=== PATIENT | male | born 1960 | race Caucasian/White ===

== ENCOUNTER 2018-10-23 09:14 | Inpatient (IN) ==
[2018-10-23] MEDS ORDERED: PANTOprazole 40 MG TAB PO STA (09:44)
[2018-10-23] MEDS ORDERED: FAMOTIDINE 20MG IV PUSH 20 MG/5 ML SYR IV STA (09:44)
[2018-10-23] MEDS ORDERED: SODIUM CHLORIDE 0.9% 1000ML 1,000 ML IV SCH (09:45)
[2018-10-23] MEDS ORDERED: SODIUM CHLORIDE 0.9% 250 ML IV PRN (10:03)
[2018-10-23 10:06] LABS: Hematocrit (blood only) 17.7 % (42-52); Hemoglobin 6.2 g/dL (14.0-18.0); Mean Corpuscular Volume 87.2 fL (80-100); Mean Platelet Volume 8.1 fL (7.4-10.4); Platelet Count 432 K/uL (130-400); RDW Coefficient of Variation 15.1 % (11.5-14.5); RDW Standard Deviation 46.7 fL (36.4-46.3); Red Blood Count 2.03 M/uL (4.7-6.1); White Blood Count 19.14 K/uL (4.8-10.8)
[2018-10-23] MEDS ORDERED: PIPERACILLIN/TAZOBACTAM 4.5 GM/120 ML BAG IV ONE (10:11)
[2018-10-23] MEDS ORDERED: PIPERACILL/TAZOBAC CONSULT ACTIVE PRN ×2 (10:11→12:49)
--- NOTE | 2018-10-23 10:13 | XRay Report ---
XR chest 1V portable CLINICAL HISTORY: 58 years-old Male presenting with weakness. TECHNIQUE: Portable upright AP view of the chest was obtained. COMPARISON: 08/17/2018. FINDINGS: Cardiomediastinal silhouette normal. No focal opacity. No large effusion or pneumothorax. Osseous str uctures normal. Upper abdomen normal. IMPRESSION: 1. No acute cardiopulmonary disease. Electronically signed by: Memo Nina M.D. 10/23/2018 10:12 AM
[2018-10-23 10:14] LABS: Partial Thromboplastin Ratio 0.7; Partial Thromboplastin Time < 20.0 Seconds (21.0-31.0); Prothrombin Time 10.6 Seconds (9.0-12.0)
--- NOTE | 2018-10-23 10:16 | Emergency Department Note ---
Entered by Sparkle Heath acting as a scribe for Liu Shepard DO History of Present Illness General Chief complaint: Vomiting Stated complaint: VOMITING, NO ENERGY, COLD, WEAKNESS, NUMB HANDS Time Seen by Provider: 10/23/18 09:32 Source: patient and family History of Present Illness Provider complaint: dizziness Onset (ago): day(s) 3 Location: head Pain Consistency: + intermittent Maximum Pain Intensity: 10 Quality: + other (dizziness) Associated symptoms: + chest pain, + fever/chills, + nausea/vomiting and + other (black stool, loss of energy) The patient is a 58 year old male who presents to the Emergency Department with complaints of dizziness over the last 3 days. His son states that the patient has also been vomiting and has had hot and cold flashes. The patient states that he did pass out in the waiting room and states that he has also had mild chest pain. The patient reports that he is "unable to function" and has had a loss of energy. He also reports having black stool. The patient states that he has not seen his doctor for his symptoms. Per son, the patient had a prostate biopsy 1 month ago and did get an infection. His son states that the patient has had these symptoms intermittently since the biopsy. The patient reports a history of hypertension. The patient states that he has prostate cancer and that his prostate was removed in January. He states that he is not aware of the cancer spreading. The patient states that he has been taking Advil but no other pain medication. He denies hitting his head recently. The patient states that he drinks beer daily. Home Medications Home Medications Medication Instructions Recorded Confirmed Type irbesartan 300 mg PO QAM 07/19/18 10/23/18 History tamsulosin 0.4 mg PO DAILY 10/23/18 10/23/18 History Allergies Allergy/AdvReac Type Severity Reaction Status Date / Time No Known Allergies Verified 10/23/18 09:49 Past Med/Surg History Medical History Prostate cancer Anxiety no meds Hypertension Sleep apnea does not use CPAP as ordered Surgical History History of prostate biopsy History of tooth extraction under local Family History Father No problems noted. Mother , age 75 severe arthritis No problems noted. Brother , age 56 renal cancer No problems noted. Other No family history of adverse response to anesthesia Social History Preferred Language: Italian Communication Ability: Effective Visual Impairment: No Limitations Beliefs That Will Affect Care: None marital status: Current Living Situation: Spouse and Family Current Living Situation Comment: Lives with and daughter current occupation: asphalt contractor Feels Safe at Home: Yes Smoking Status: Former smoker Tobacco Type: cigarettes Age Started Using Tobacco: 17 Age Quit Using Tobacco: 19 packs per day: 0.5 Second Hand Exposure: No Hx Alcohol Use: Yes Alcohol type: beer Hx Substance Use: No caffeine: Yes (tea and coffee) during the past year weight has: remained stable Dental Care, Regularly: No Physical Activity Frequency: Daily Seatbelt Use: always Sunscreen Use: Yes Review of Systems See HPI for pertinent positives & negatives. and A total of 10 systems reviewed and were otherwise negative Physical Exam Vital Signs Vital Signs - 24 hr 10/23/18 09:29 10/23/18 09:50 10/23/18 10:30 Temperature 36.4 C L Temperature Source Oral Sepsis Recent Fever Within 48 Hours No Sepsis Action Taken by Nursing No Action Required Pulse Rate 102 H Pulse Rate [Apical] 79 Respiratory Rate 16 20 Respiratory Effort / Characteristics Non-Labored Spontaneous Respiratory Depth Normal Normal Blood Pressure 114/81 Blood Pressure [Right Arm] 107/68 106/63 Blood Pressure Mean 92 Blood Pressure Mean [Right Arm] 81 77 Pulse Oximetry 99 100 Oxygen Delivery Method Room Air GENERAL: Patient is awake, alert, and anxious appearing. EYES: The conjunctivae are clear. The pupils are round and reactive. EARS, NOSE, MOUTH AND THROAT: The nose is without any evidence of any deformity. Mucous membranes are dry.Tongue is midline NECK: The neck is nontender and supple. RESPIRATORY: Normal respiratory effort is noted. There is no evidence of wheezing rhonchi or rales to auscultation. CARDIOVASCULAR: Tachycardic rate and regular rhythm noted. There no murmurs rubs or gallops normal S1 normal S2 GASTROINTESTINAL: The abdomen is soft. Bowel sounds are present in all quadrants. Abdomen is nontender. MUSCULOSKELETAL/EXTREMITIES: There is no evidence of gross deformity. Full range of motion is noted in the hips and shoulders. RECTAL: Black stool which was strongly heme positive. SKIN: Skin was mottled and pale. Pulses were symmetric in both feet. No pedal edema. NEUROLOGIC: Patient is awake alert and oriented x3. Strength is symmetric. Patellar reflexes are 2+ bilaterally. Course 0935: The patient was evaluated in room B9. A history and physical were performed. 0957: The patient was consented for blood. 1012: I discussed the patient's case with Renard Hutchinson PA-C, admitting to Dr. Boland, who will evaluate the patient for further management. 1025: I updated the patient who verbalized agreement and understanding of the treatmen plan. Consultations Consultation #1: Renard Gerbertany Time: 10:12 Administered Medications Pantoprazole Sodium 40 mg/ (Syringe) 10 mls @ 5 mls/min IV BID@0900,2100 [facility] Stop: 10/24/18 21:01 Last Admin: 10/23/18 13:18 Dose: 5 mls/min Documented by: [id number] Piperacillin Sod/Tazobactam (Sod 3.375 gm/ Dextrose) 115 mls @ 28.75 mls/hr IV Q8H JOSIAS; Protocol Stop: 11/02/18 15:59 Last Admin: 10/23/18 16:47 Dose: 28.8 mls/hr Documented by: [id number] Insulin Aspart (Novolog Flexpen) 0 units SC ACHS JOSIAS Stop: 11/22/18 12:59 Last Admin: 10/23/18 16:41 Dose: Not Given Documented by: [id number] Cosigned by: [id number] Admin: 10/23/18 14:15 Dose: Not Given Documented by: [id number] Cosigned by: [id number] Ioversol (Optiray 320 100ml) 93 ml IV ONCE PRN PRN Reason: Interaction Checking Stop: 10/27/18 11:27 Last Admin: 10/23/18 11:29 Dose: 93 ml Documented by: [id number] Discontinued Medications Sodium Chloride (Nss 1000ml) 1,000 mls @ 999 mls/hr IV .Q1H1M JOSIAS Stop: 10/23/18 10:45 Last Infusion: 10/23/18 12:26 Dose: 0 mls/hr Documented by: [id number] Admin: 10/23/18 09:56 Dose: 999 mls/hr Documented by: [id number] Famotidine (Pepcid 20mg Iv Push) 20 mg in 5 mls @ 2.5 mls/min IV NOW STA Stop: 10/23/18 09:45 Last Admin: 10/23/18 09:56 Dose: 2.5 mls/min Documented by: [id number] Piperacillin Sod/Tazobactam Sod (Zosyn) 4.5 gm in 120 mls @ 240 mls/hr IV NOW ONE Stop: 10/23/18 10:40 Last Infusion: 10/23/18 12:27 Dose: 0 mls/hr Documented by: [id number] Admin: 10/23/18 11:10 Dose: 240 mls/hr Documented by: [id number] Pantoprazole Sodium (Protonix) 40 mg PO NOW STA Stop: 10/23/18 09:45 Last Admin: 10/23/18 10:11 Dose: 40 mg Documented by: [id number] Medical Decision Making Differential Diagnosis Differential diagnosis: Etiologies such as esophagitis, variceal bleed, Boerhaaves, Occidental-Duff tear, gastritis, peptic ulcer disease, AVM, inflammatory bowel disease, ischemia, diverticulosis, colitis, malignancy, coagulopathy, thrombocytopenia, fissure, hemorrhoid, epistaxis , as well as others were entertained.. Medical Records Attestation: I reviewed the patient's medical records. Home Medications Current Medication List: was personally reviewed by me Laboratory Data Attestation: I reviewed the patient's lab results. Result diagrams: 10/23/18 09:46 10/23/18 09:46 Lab Results 10/23/18 10/23/18 10/23/18 Range/Units 09:44 09:46 09:46 WBC (4.8-10.8) K/uL RBC (4.7-6.1) M/uL Hgb (14.0-18.0) g/dL POC Hgb (14.0-18.0) g/dl Hct (42-52) % POC Hct (42-52) % MCV (80-100) fL MCH (25-34) pg MCHC (32-36) g/dL RDW Std Deviation (36.4-46.3) fL RDW Coeff of [place] (11.5-14.5) % Plt Count (130-400) K/uL MPV (7.4-10.4) fL Immature Gran % (Auto) % Neut % (Auto) % Lymph % (Auto) % [place] % (Auto) % Eos % (Auto) % Baso % (Auto) % Immature Gran # (Auto) (0.00-0.02) K/uL Neut # (Auto) (1.4-6.5) K/uL Lymph # (Auto) (1.2-3.4) K/uL [place] # (Auto) (0.11-0.59) K/uL Eos # (Auto) (0-0.5) K/uL Baso # (Auto) (0-0.2) K/uL RBC Morphology ESR 5 (0-14) mm/hr PT 10.6 (9.0-12.0) Seconds INR 1.0 (0.9-1.1) APTT < 20.0 L (21.0-31.0) Seconds PTT Ratio 0.7 POC Sodium (135-144) mEq/L Sodium (136-145) mmol/L POC Potassium (3.3-5.0) mEq/L Potassium (3.5-5.1) mmol/L POC Chloride (101-112) mEq/L Chloride (98-107) mmol/L Carbon Dioxide (21-32) mmol/L POC Total CO2 (24-31) mEq/l Anion Gap (3-11) POC Anion Gap (16-25) mmol/L POC BUN (7-18) mg/dl BUN (7-18) mg/dl Creatinine (0.6-1.4) mg/dl POC Creatinine (0.6-1.3) mg/dl Est Cr Clr Drug Dosing Est GFR ( Amer) Est GFR (Non-Af Amer) BUN/Creatinine Ratio (10-20) Glucose (70-99) mg/dl POC Glucose (other) (70-99) mg/dl Calcium (8.5-10.1) mg/dl POC Ioniz Calcium Mile (1.12-1.32) mmol/l Magnesium (1.8-2.4) mg/dl Total Bilirubin (0.2-1) mg/dl AST (15-37) U/L ALT (12-78) U/L Alkaline Phosphatase (45-117) U/L Troponin I (0-0.045) ng/ml C-Reactive Protein (0-0.29) mg/dl Total Protein (6.4-8.2) gm/dl Albumin (3.4-5.0) gm/dl Globulin (2.5-4.0) gm/dl Albumin/Globulin Ratio (0.9-2) TSH (0.300-4.500) uIu/ml Hepatitis C Ab Screen (Neg) Blood Type A Positive Blood Type Recheck Antibody Screen NEGATIVE Crossmatch See Detail 10/23/18 10/23/18 10/23/18 Range/Units 09:46 09:46 09:52 WBC 19.14 H (4.8-10.8) K/uL RBC 2.03 L (4.7-6.1) M/uL Hgb 6.2 L* (14.0-18.0) g/dL POC Hgb 5.4 L* (14.0-18.0) g/dl Hct 17.7 L* (42-52) % POC Hct 16 L* (42-52) % MCV 87.2 (80-100) fL MCH 30.5 (25-34) pg MCHC 35.0 (32-36) g/dL RDW Std Deviation 46.7 H (36.4-46.3) fL RDW Coeff of [place] 15.1 H (11.5-14.5) % Plt Count 432 H (130-400) K/uL MPV 8.1 (7.4-10.4) fL Immature Gran % (Auto) 1.4 % Neut % (Auto) 85.9 % Lymph % (Auto) 9.9 % [place] % (Auto) 2.5 % Eos % (Auto) 0.2 % Baso % (Auto) 0.1 % Immature Gran # (Auto) 0.27 H (0.00-0.02) K/uL Neut # (Auto) 16.45 H (1.4-6.5) K/uL Lymph # (Auto) 1.89 (1.2-3.4) K/uL [place] # (Auto) 0.47 (0.11-0.59) K/uL Eos # (Auto) 0.04 (0-0.5) K/uL Baso # (Auto) 0.02 (0-0.2) K/uL RBC Morphology Unremarkable ESR (0-14) mm/hr PT (9.0-12.0) Seconds INR (0.9-1.1) APTT (21.0-31.0) Seconds PTT Ratio POC Sodium 134 L (135-144) mEq/L Sodium 135 L (136-145) mmol/L POC Potassium 4.0 (3.3-5.0) mEq/L Potassium 4.0 (3.5-5.1) mmol/L POC Chloride 101 (101-112) mEq/L Chloride 102 (98-107) mmol/L Carbon Dioxide 23 (21-32) mmol/L POC Total CO2 19 L (24-31) mEq/l Anion Gap 10.0 (3-11) POC Anion Gap 19.0 (16-25) mmol/L POC BUN 42 H (7-18) mg/dl BUN 43 H (7-18) mg/dl Creatinine 0.92 (0.6-1.4) mg/dl POC Creatinine 0.8 (0.6-1.3) mg/dl Est Cr Clr Drug Dosing Not Reportable Est GFR ( Amer) 105.9 Est GFR (Non-Af Amer) 91.4 BUN/Creatinine Ratio 47.4 H (10-20) Glucose 202 H (70-99) mg/dl POC Glucose (other) 203 H (70-99) mg/dl Calcium 7.8 L (8.5-10.1) mg/dl POC Ioniz Calcium Mile 1.09 L (1.12-1.32) mmol/l Magnesium 2.2 (1.8-2.4) mg/dl Total Bilirubin 0.2 (0.2-1) mg/dl AST 8 L (15-37) U/L ALT 23 (12-78) U/L Alkaline Phosphatase 50 (45-117) U/L Troponin I < 0.015 (0-0.045) ng/ml C-Reactive Protein < 0.29 (0-0.29) mg/dl Total Protein 5.6 L (6.4-8.2) gm/dl Albumin 2.8 L (3.4-5.0) gm/dl Globulin 2.8 (2.5-4.0) gm/dl Albumin/Globulin Ratio 1.0 (0.9-2) TSH 2.870 (0.300-4.500) uIu/ml Hepatitis C Ab Screen (Neg) Blood Type Blood Type Recheck Antibody Screen Crossmatch 10/23/18 10/23/18 Range/Units 09:52 10:22 WBC (4.8-10.8) K/uL RBC (4.7-6.1) M/uL Hgb (14.0-18.0) g/dL POC Hgb (14.0-18.0) g/dl Hct (42-52) % POC Hct (42-52) % MCV (80-100) fL MCH (25-34) pg MCHC (32-36) g/dL RDW Std Deviation (36.4-46.3) fL RDW Coeff of [place] (11.5-14.5) % Plt Count (130-400) K/uL MPV (7.4-10.4) fL Immature Gran % (Auto) % Neut % (Auto) % Lymph % (Auto) % [place] % (Auto) % Eos % (Auto) % Baso % (Auto) % Immature Gran # (Auto) (0.00-0.02) K/uL Neut # (Auto) (1.4-6.5) K/uL Lymph # (Auto) (1.2-3.4) K/uL [place] # (Auto) (0.11-0.59) K/uL Eos # (Auto) (0-0.5) K/uL Baso # (Auto) (0-0.2) K/uL RBC Morphology ESR (0-14) mm/hr PT (9.0-12.0) Seconds INR (0.9-1.1) APTT (21.0-31.0) Seconds PTT Ratio POC Sodium (135-144) mEq/L Sodium (136-145) mmol/L POC Potassium (3.3-5.0) mEq/L Potassium (3.5-5.1) mmol/L POC Chloride (101-112) mEq/L Chloride (98-107) mmol/L Carbon Dioxide (21-32) mmol/L POC Total CO2 (24-31) mEq/l Anion Gap (3-11) POC Anion Gap (16-25) mmol/L POC BUN (7-18) mg/dl BUN (7-18) mg/dl Creatinine (0.6-1.4) mg/dl POC Creatinine (0.6-1.3) mg/dl Est Cr Clr Drug Dosing Est GFR ( Amer) Est GFR (Non-Af Amer) BUN/Creatinine Ratio (10-20) Glucose (70-99) mg/dl POC Glucose (other) (70-99) mg/dl Calcium (8.5-10.1) mg/dl POC Ioniz Calcium Mile (1.12-1.32) mmol/l Magnesium (1.8-2.4) mg/dl Total Bilirubin (0.2-1) mg/dl AST (15-37) U/L ALT (12-78) U/L Alkaline Phosphatase (45-117) U/L Troponin I (0-0.045) ng/ml C-Reactive Protein (0-0.29) mg/dl Total Protein (6.4-8.2) gm/dl Albumin (3.4-5.0) gm/dl Globulin (2.5-4.0) gm/dl Albumin/Globulin Ratio (0.9-2) TSH (0.300-4.500) uIu/ml Hepatitis C Ab Screen Neg (Neg) Blood Type Blood Type Recheck A Positive Antibody Screen Crossmatch Imaging Data Radiologist's Impression: Radiology results as stated below per my review and the radiologist's interpretation: XR chest 1V portable CLINICAL HISTORY: 58 years-old Male presenting with weakness. TECHNIQUE: Portable upright AP view of the chest was obtained. COMPARISON: 08/17/2018. FINDINGS: Cardiomediastinal silhouette normal. No focal opacity. No large effusion or pneumothorax. Osseous structures normal. Upper abdomen normal. IMPRESSION: 1. No acute cardiopulmonary disease. Electronically signed by: Memo Nina M.D. 10/23/2018 10:[address] head/brain wo con CT DOSE: 537.48 mGy.cm HISTORY: Mental status change synope TECHNIQUE: Multiaxial CT images of the head were performed without the use of intravenous contrast. A dose lowering technique was utilized adhering to the principles of ALARA. Comparison: None. Findings: The paranasal sinuses and mastoid air cells are clear. The calvarium and skull base are intact. The ventricles and sulci are within normal limits. There is no mass, hematoma, midline shift, or acute infarct. Impression: No acute intracranial abnormality. The above report was generated using voice recognition software. It may contain grammatical, syntax or spelling errors. Electronically signed by: Bartolo Pelaez M.D. 10/23/2018 11:[address] abd pelvis IV con only CLINICAL HISTORY: 58 years-old Male presenting with vomiting and GIB, history of prostate cancer. TECHNIQUE: Multidetector CT of the abdomen and pelvis was performed after the administration of intravenous contrast. IV contrast: 93 mL of Optiray 320. One or more dose lowering techniques were used consistent with the principles of ALARA (as low as reasonably achievable), including automatic exposure control, mA or kV adjustment to individual patient size, and/or use of iterative reconstruction. COMPARISON: 09/25/2018. CT DOSE (mGy.cm): The estimated cumulative dose is 346.79 mGy.cm. FINDINGS: Technical Marketing Consultant topogram: Unremarkable. Lung bases: Normal heart size. Coronary artery calcification. No pericardial or pleural effusion. Minimal dependent changes likely atelectasis. Liver: Normal morphology. No liver lesion. Patent hepatic vasculature. Biliary: No intrahepatic or extrahepatic biliary ductal dilatation. Normal gallbladder. Pancreas: Normal. Spleen: Normal. Adrenal glands: Normal. Kidneys and ureters: Patchy hypoenhancement in the right kidney this is a change from prior left kidney normal. No nephrolithiasis or hydronephrosis. Ureters nondistended. Bladder: Circumferential bladder wall thickening. Pelvic organs: Prostate and seminal vesicles normal. Bowel: Diverticulosis of the sigmoid and distal descending colon without wall thickening or pericolonic inflammatory change. The appendix is normal. No bowel obstruction. Moderate to large sliding-type hiatal hernia. Peritoneal cavity: No free fluid or intraperitoneal gas. Lymph nodes: No enlarged lymph nodes in the abdomen or pelvis. Vasculature: Atherosclerosis of the normal caliber abdominal aorta. IVC patent. 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 Abdominal wall: Small fat-containing inguinal hernias. Musculoskeletal: Degenerative changes of the spine. IMPRESSION: 1. No CT evidence of gastrointestinal hemorrhage. Extensive diverticulosis of the sigmoid and distal descending colon would be the most likely culprit for lower GI bleed. 2. Patchy enhancements of the right kidney is new from prior and raises concern for underlying pyelonephritis or less likely small infarcts. Correlate with urinalysis. Attention on follow-up. 3. Circumferential bladder wall thickening presumably represents chronic bladder outlet obstruction though there is no significant prostatomegaly. Correlate with urinalysis to suggest cystitis. 4. 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 Consider nonurgent spectral Doppler ultrasound examination of the mesenteric vessels for a better functional assessment. Electronically signed by: Memo Nina M.D. 10/23/2018 11:44 AM ECG Data Attestation: I personally reviewed and interpreted this ECG as follows: Indication: vomiting Rate (beats per minute): 83 Rhythm: normal sinus Findings: no PAC, no PVC, no ST depression, no ST elevation, no acute ischemic change and no ectopy Blood Pressure Blood Pressure Findings: Normal blood pressure MDM Narrative The patient is a 58-year-old male who presented to the emergency department for an evaluation of dizziness and generalized weakness. The patient's noticed over the last 2 weeks that he is been having dizziness and weakness. He also describes some degree of vertigo but I think his symptoms are mostly near syncopal. He actually had a syncopal episode in our waiting room while he was waiting to be seen. The patient was mottled and pale appearing. He was found to have dark stool which was strongly positive. His hemoglobin was found to be low. He does have a history of recent NSAID use as well as alcohol use. Likely the patient is suffering from an upper GI bleed. A type and screen was sent and blood products were ordered. I discussed the patient's laboratory and radiographic studies with him. I also discussed his case with the on-call [facility] hospitalist group. They have agreed to evaluate the patient in the emergency department for further management and disposition. Blood products were ordered by myself. I did consent the patient for blood. The patient was also treated with IV fluid. He was reevaluated multiple times. Impression & Plan Upper GI bleed, Anemia, Syncope, Vomiting, Pyelonephritis Critical Care Time Critical Care Time: Yes Total Critical Care Time: 60 I have personally spent 60 minutes of critical care time in the direct management of this patient. This includes bedside care, interpretation of diagnostic studies, and testing, discussion with consultants, patient, and family members, and other required patient management activities. This 60 minutes is in excess of all separately billable procedures. Discharge Plan Visit Data *Final* Discharge Date/Time: 10/23/18 12:24 Chief Complaint: Vomiting Stated Complaint: VOMITING, NO ENERGY, COLD, WEAKNESS, NUMB HANDS ED Provider: Liu Shepard Discharge Problem: Upper GI bleed, Anemia, Syncope, Vomiting, Pyelonephritis Patient Disposition: Admitted As Inpatient Discharge Instructions Interventions: ED Discharge Assessment Last Done: 10/23/18 12:24 Discharge Problem: Anemia Qualifiers: Anemia type: unspecified type Qualified Code(s): D64.9 - Anemia, unspecified Syncope Qualifiers: Syncope type: unspecified Qualified Code(s): R55 - Syncope and collapse Vomiting Qualifiers: Vomiting type: unspecified Vomiting Intractability: unspecified Nausea presence: unspecified Qualified Code(s): R11.10 - Vomiting, unspecified The scribe's documentation has been prepared under my direction and personally reviewed by me in its entirety. I confirm that the note above accurately reflects all work, treatment, procedures, and medical decision making performed by me.
[2018-10-23 10:18] LABS: Alanine Aminotransferase 23 U/L (12-78); Albumin Level 2.8 gm/dl (3.4-5.0); Aspartate Aminotransferase 8 U/L (15-37); BUN Creatinine Ratio 47.4 (10-20); Blood Urea Nitrogen 43 mg/dl (7-18); Calcium 7.8 mg/dl (8.5-10.1); Carbon Dioxide 23 mmol/L (21-32); Chloride 102 mmol/L (98-107); Est GFR (African American) 105.9; Est GFR (Non-African American) 91.4; Glucose 202 mg/dl (70-99); Magnesium 2.2 mg/dl (1.8-2.4); Sodium 135 mmol/L (136-145)
[2018-10-23 10:26] LABS: Basophils # (auto) 0.02 K/uL (0-0.2); Basophils % (auto) 0.1 %; Eosinophils # (auto) 0.04 K/uL (0-0.5); Eosinophils % (auto) 0.2 %; Immature Granulocytes # (auto) 0.27 K/uL (0.00-0.02); Immature Granulocytes % (auto) 1.4 %; Lymphocytes # (auto) 1.89 K/uL (1.2-3.4); Lymphocytes % (auto) 9.9 %; Monocytes # (auto) 0.47 K/uL (0.11-0.59); Monocytes % (auto) 2.5 %; Neutrophils # (auto) 16.45 K/uL (1.4-6.5); Neutrophils % (auto) 85.9 %; RBC Morphology Unremarkable
[2018-10-23 10:29] LABS: Alkaline Phosphatase 50 U/L (45-117); Bilirubin,Total 0.2 mg/dl (0.2-1); C Reactive Protein < 0.29 mg/dl (0-0.29); Globulin 2.8 gm/dl (2.5-4.0); Total Protein 5.6 gm/dl (6.4-8.2); Troponin I < 0.015 ng/ml (0-0.045)
[2018-10-23] MEDS ORDERED: IOVERSOL 100ml IV PRN (11:28)
--- NOTE | 2018-10-23 11:36 | CT Scan Report ---
CT head/brain wo con CT DOSE: 537.48 mGy.cm HISTORY: Mental status change synope TECHNIQUE: Multiaxial CT images of the head were performed without the use of intravenous contrast. A dose lowering technique was utilized adhering to the principles of ALARA. Comparison: None. Findings: The paranasal sinuses and mastoid air cells are clear. The calvarium and skull base are int act. The ventricles and sulci are within normal limits. There is no mass, hematoma, midline shift, or acute infarct. Impression: No acute intracranial abnormality. The above report was generated using voice recognition software. It may contain grammatical, syntax or spelling errors. Electronically signed by: Bartolo Pelaez M.D. 10/23/2018 11:34 AM
--- NOTE | 2018-10-23 11:38 | History & Physical Report ---
Date of Service October 23, 2018 Assessment & Plan (1) Upper GI bleed: Patient with suspected UGIB. Presenting with 3-4 days of melenic stools, nausea and coffee ground emesis followed by hematemesis today. Symptomatic anemia. Hg=6.2, Hct=17.7. Patient with history of daily EtOH use as well as intermittent use of NSAIDS. Presently hemodynamically stable and asymptomatic. -Admit to PCU -Monitor CBC q 8 hours. Transfuse for active bleeding, symptomatic anemia or Hg < 7 -NPO -GI consultation - appreciate assistance with this case -Maintain 2 large bore PIVs -Protonix 40mg IV BID - approved by pharmacy at time of admission Present on Admission?: Yes (2) Anemia: Normochromic/normocytic anemia, Hg=6.2, Hct=17.7 down from prior values of 14.4 and 40 in August 2018. Most likely secondary to acute blood loss anemia in setting of UGIB. Patient symptomatic with near syncope/dizziness/fatigue/weakness and CASTELLANO. -To receive 2u PRBCs in ER -Monitor CBC q 8 hours, transfuse for active bleed, symptoms or inappropriate response in Hg -GI consultation as above Present on Admission?: Yes (3) Leukocytosis: Patient with neutrophil predominant leukocytosis with bands, WBC=19.14. He reports subjective fevers and chills since his prostate biopsy as well as recent dysuria and urinary frequency. Suspect leukocytosis is mildly reactive in setting of acute bleed as well as possible infection, UTI vs prostatitis -Awaiting UA with culture -Will empirically treat with Zosyn, deescalation pending culture results -Consider Urology consultation as patient is known to them Present on Admission?: Yes (4) Hyperglycemia: Blood sugar = 202 at present. Patient with elevated values in the past. May represent undiagnosed DM with BS > 200 and urinary frequency. -Check A1C with AM labs -ISS for now with goal blood sugar of 80 - 140 Present on Admission?: Yes (5) Hypertension: Blood pressure stable at present -Hold Irbesartan in setting of acute bleed -Continue to monitor Present on Admission?: Yes (6) LOKESH on CPAP: Patient is not compliant with CPAP. -Encourage use at home -CPAP qHS Present on Admission?: Yes (7) Prostate cancer: Patient with newly diagnosed prostate cancer, moderately differentiated Malika 3+4, PSA=11.3, cT 1c. Bone scan performed on 09/25/18 with no evidence of metastatic disease. He follows with Urology. Has opted for radical prostatectomy to be performed in the fall. F/E/N - Transfusion as above. Electrolytes WNL. NPO for now in setting of UGIB Ppx - SCDs and TEDs to bilateral LEs Code -Full Dispo - Admit to PCU Present on Admission?: Yes History of Present Illness Chief Complaint: syncope/UGIB Primary Care Provider: Carlos Muñiz MD Mr. Jerome Salcedo is a pleasant 58yo C male with history of Prostate CA on active surveillance, HTN Anxiety presenting with suspected UGIB. Patient reports black, tarry stools for the last 3-4 days. This AM patient developed nausea with 2 episodes of coffee ground emesis. Patient had a syncopal episode while waiting in the ER and had an episode of hematemesis. Stools found to be strongly heme + by ER as well as normochromic/normocytic anemia, Hg=6.2 down from prior value of 14.4 in August. Additionally he has been complaining of approximately 1 month of intermittent dizziness as well as generalized weakness and fatigue. He reports lightheadedness and near syncope with positional changes and CASTELLANO. These symptoms have been acutely worse over the last 2-3 days. He also had an episode of mild chest discomfort after vomiting which quickly resolved. Patient drinks EtOH, appx 2-3 beers daily. He uses Ibuprofen and Excedrin a few times per week. He has no known history of liver disease. No prior history of GIB and is not on anticoagulation. He also reports intermittent fevers, chills and body aches since his prostate biopsy in late August as well as increased urinary frequency. ER Course: Pepcid 20mg IV. Protonix 40mg PO. NSS 1L. Zosyn 4.5gm Allergies Allergy/AdvReac Type Severity Reaction Status Date / Time No Known Allergies Verified 10/23/18 09:49 Home Medications Home Medications Medication Instructions Recorded Confirmed Type irbesartan 300 mg PO QAM 07/19/18 10/23/18 History tamsulosin 0.4 mg PO DAILY 10/23/18 10/23/18 History Past Med/Surg History Medical History Prostate cancer Anxiety no meds Hypertension Sleep apnea does not use CPAP as ordered Surgical History History of prostate biopsy History of tooth extraction under local Family History Father No problems noted. Mother , age 75 severe arthritis No problems noted. Brother , age 56 renal cancer No problems noted. Other No family history of adverse response to anesthesia Social History Preferred Language: Eritrean Communication Ability: Effective Visual Impairment: No Limitations Beliefs That Will Affect Care: None marital status: Current Living Situation: Spouse and Family Current Living Situation Comment: Lives with and daughter current occupation: asphalt contractor Feels Safe at Home: Yes Smoking Status: Never smoker Tobacco Type: cigarettes Age Started Using Tobacco: 17 Age Quit Using Tobacco: 19 packs per day: 0.5 Second Hand Exposure: Yes ( SMOKES) Hx Alcohol Use: Yes Alcohol type: beer Hx Substance Use: No caffeine: Yes (tea and coffee) during the past year weight has: remained stable Dental Care, Regularly: No Physical Activity Frequency: Daily Seatbelt Use: always Sunscreen Use: Yes Review of Systems Review of Systems: All systems reviewed & are unremarkable except as noted in HPI & below Patient presently without nausea, CP, abdominal pain or SOB Physical Exam Physical Exam: General: patient resting comfortably, NAD, ill in appearance, AA&O x 4 Skin: +pallor of skin, conjunctiva and oral mucosa, warm, dry, intact, no rashes or lesions HEENT: NC/AT, PERRL, EOMI, anicteric sclera, conjunctiva pale and without injection, external ear normal to inspection and nontender, nares patent, moist mucus membranes, dentition intact, no oropharyngeal lesions, neck supple, trachea midline, no LAD, no thyromegaly, no JVD Heart: +S1/S2, regular, no m/r/g Lungs: equal air entry bilaterally, no rales/rhonchi/wheezes Abd: +BS, soft, NT/ND, no masses/organomegaly/ascites Ext: warm, 2+ pulses in UE/LE bilaterally, no clubbing/cyanosis or edema Neuro: nonfocal, patient AA&O x 4, speech intact, no facial droop, moving all extremities on command with equal strength 5/5 Results & Data Vital Signs (Past 12 Hours) Vital Signs Temp Pulse Resp BP Pulse Ox 10/23/18 09:29 36.4 C L 102 H 16 114/81 99 Laboratory Results Lab Results 10/23/18 10/23/18 10/23/18 Range/Units 09:44 09:46 09:46 WBC (4.8-10.8) K/uL RBC (4.7-6.1) M/uL Hgb (14.0-18.0) g/dL Hct (42-52) % MCV (80-100) fL MCH (25-34) pg MCHC (32-36) g/dL RDW Std Deviation (36.4-46.3) fL RDW Coeff of [place] (11.5-14.5) % Plt Count (130-400) K/uL MPV (7.4-10.4) fL Immature Gran % (Auto) % Neut % (Auto) % Lymph % (Auto) % [place] % (Auto) % Eos % (Auto) % Baso % (Auto) % Immature Gran # (Auto) (0.00-0.02) K/uL Neut # (Auto) (1.4-6.5) K/uL Lymph # (Auto) (1.2-3.4) K/uL [place] # (Auto) (0.11-0.59) K/uL Eos # (Auto) (0-0.5) K/uL Baso # (Auto) (0-0.2) K/uL RBC Morphology ESR 5 (0-14) mm/hr PT 10.6 (9.0-12.0) Seconds INR 1.0 (0.9-1.1) APTT < 20.0 L (21.0-31.0) Seconds PTT Ratio 0.7 Sodium (136-145) mmol/L Potassium (3.5-5.1) mmol/L Chloride (98-107) mmol/L Carbon Dioxide (21-32) mmol/L Anion Gap (3-11) BUN (7-18) mg/dl Creatinine (0.6-1.4) mg/dl Est Cr Clr Drug Dosing Est GFR ( Amer) Est GFR (Non-Af Amer) BUN/Creatinine Ratio (10-20) Glucose (70-99) mg/dl Calcium (8.5-10.1) mg/dl Magnesium (1.8-2.4) mg/dl Total Bilirubin (0.2-1) mg/dl AST (15-37) U/L ALT (12-78) U/L Alkaline Phosphatase (45-117) U/L Troponin I (0-0.045) ng/ml C-Reactive Protein (0-0.29) mg/dl Total Protein (6.4-8.2) gm/dl Albumin (3.4-5.0) gm/dl Globulin (2.5-4.0) gm/dl Albumin/Globulin Ratio (0.9-2) TSH (0.300-4.500) uIu/ml Blood Type A Positive Blood Type Recheck Antibody Screen NEGATIVE Crossmatch See Detail 10/23/18 10/23/18 10/23/18 Range/Units 09:46 09:46 10:22 WBC 19.14 H (4.8-10.8) K/uL RBC 2.03 L (4.7-6.1) M/uL Hgb 6.2 L* (14.0-18.0) g/dL Hct 17.7 L* (42-52) % MCV 87.2 (80-100) fL MCH 30.5 (25-34) pg MCHC 35.0 (32-36) g/dL RDW Std Deviation 46.7 H (36.4-46.3) fL RDW Coeff of [place] 15.1 H (11.5-14.5) % Plt Count 432 H (130-400) K/uL MPV 8.1 (7.4-10.4) fL Immature Gran % (Auto) 1.4 % Neut % (Auto) 85.9 % Lymph % (Auto) 9.9 % [place] % (Auto) 2.5 % Eos % (Auto) 0.2 % Baso % (Auto) 0.1 % Immature Gran # (Auto) 0.27 H (0.00-0.02) K/uL Neut # (Auto) 16.45 H (1.4-6.5) K/uL Lymph # (Auto) 1.89 (1.2-3.4) K/uL [place] # (Auto) 0.47 (0.11-0.59) K/uL Eos # (Auto) 0.04 (0-0.5) K/uL Baso # (Auto) 0.02 (0-0.2) K/uL RBC Morphology Unremarkable ESR (0-14) mm/hr PT (9.0-12.0) Seconds INR (0.9-1.1) APTT (21.0-31.0) Seconds PTT Ratio Sodium 135 L (136-145) mmol/L Potassium 4.0 (3.5-5.1) mmol/L Chloride 102 (98-107) mmol/L Carbon Dioxide 23 (21-32) mmol/L Anion Gap 10.0 (3-11) BUN 43 H (7-18) mg/dl Creatinine 0.92 (0.6-1.4) mg/dl Est Cr Clr Drug Dosing Not Reportable Est GFR ( Amer) 105.9 Est GFR (Non-Af Amer) 91.4 BUN/Creatinine Ratio 47.4 H (10-20) Glucose 202 H (70-99) mg/dl Calcium 7.8 L (8.5-10.1) mg/dl Magnesium 2.2 (1.8-2.4) mg/dl Total Bilirubin 0.2 (0.2-1) mg/dl AST 8 L (15-37) U/L ALT 23 (12-78) U/L Alkaline Phosphatase 50 (45-117) U/L Troponin I < 0.015 (0-0.045) ng/ml C-Reactive Protein < 0.29 (0-0.29) mg/dl Total Protein 5.6 L (6.4-8.2) gm/dl Albumin 2.8 L (3.4-5.0) gm/dl Globulin 2.8 (2.5-4.0) gm/dl Albumin/Globulin Ratio 1.0 (0.9-2) TSH 2.870 (0.300-4.500) uIu/ml Blood Type Blood Type Recheck A Positive Antibody Screen Crossmatch Diagnostic Findings XR chest 1V portable CLINICAL HISTORY: 58 years-old Male presenting with weakness. TECHNIQUE: Portable upright AP view of the chest was obtained. COMPARISON: 08/17/2018. FINDINGS: Cardiomediastinal silhouette normal. No focal opacity. No large effusion or pneumothorax. Osseous structures normal. Upper abdomen normal. IMPRESSION: 1. No acute cardiopulmonary disease. Electronically signed by: Memo Nina M.D. 10/23/2018 10:12 AM Dictated: 10/23/18 1007 Transcribed: 10/23/18 1007 ECG Additional Comments: The study shows NSR at 83bpm, normal axis, CM=642, QRS=74, WQd=678, no evidence of acute ischemia Code Status & VTE Plan Code Status FULL VTE Prophylaxis Plan VTE Prophylaxis will be ordered: Yes PG Care Time/CCT Total # of Minutes Spent Total Time Spent with Patient: Total time spent is greater than 50% in coordination of care (as documented) at patient's floor/unit and/or counseling patient: (1) Anemia Anemia type: unspecified type Qualified Code(s): D64.9 - Anemia, unspecified (2) Leukocytosis Leukocytosis type: unspecified Qualified Code(s): D72.829 - Elevated white blood cell count, unspecified (3) Hypertension Hypertension type: essential hypertension Qualified Code(s): I10 - Essential (primary) hypertension
--- NOTE | 2018-10-23 11:45 | CT Scan Report ---
CT abd pelvis IV con only CLINICAL HISTORY: 58 years-old Male presenting with vomiting and GIB, history of prostate cancer. TECHNIQUE: Multidetector CT of the abdomen and pelvis was performed after the administration of intra venous contrast. IV contrast: 93 mL of Optiray 320. One or more dose lowering techniques were used co nsistent with the principles of ALARA (as low as reasonably achievable), including automatic exposure control, mA or kV adjustment to individual patient size, and/or use of iterative reconstruction. COMPARISON: 09/25/2018. CT DOSE (mGy.cm): The estimated cumulative dose is 346.79 mGy.cm. FINDINGS: Publication Editor topogram: Unremarkable. Lung bases: Normal heart size. Coronary artery calcification. No pericardial or pleural effusion. Min imal dependent changes likely atelectasis. Liver: Normal morphology. No liver lesion. Patent hepatic vasculature. Biliary: No intrahepatic or extrahepatic biliary ductal dilatation. Normal gallbladder. Pancreas: Normal. Spleen: Normal. Adrenal glands: Normal. Kidneys and ureters: Patchy hypoenhancement in the right kidney this is a change from prior left kidn ey normal. No nephrolithiasis or hydronephrosis. Ureters nondistended. Bladder: Circumferential bladder wall thickening. Pelvic organs: Prostate and seminal vesicles normal. Bowel: Diverticulosis of the sigmoid and distal descending colon without wall thickening or pericolon ic inflammatory change. The appendix is normal. No bowel obstruction. Moderate to large sliding-type hiatal hernia. Peritoneal cavity: No free fluid or intraperitoneal gas. Lymph nodes: No enlarged lymph nodes in the abdomen or pelvis. Vasculature: Atherosclerosis of the normal caliber abdominal aorta. IVC patent. Approximately 50% shaan nosis of the proximal superior mesenteric artery. Abdominal wall: Small fat-containing inguinal hernias. Musculoskeletal: Degenerative changes of the spine. IMPRESSION: 1. No CT evidence of gastrointestinal hemorrhage. Extensive diverticulosis of the sigmoid and distal descending colon would be the most likely culprit for lower GI bleed. 2. Patchy enhancements of the right kidney is new from prior and raises concern for underlying pyelo nephritis or less likely small infarcts. Correlate with urinalysis. Attention on follow-up. 3. Circumferential bladder wall thickening presumably represents chronic bladder outlet obstruction though there is no significant prostatomegaly. Correlate with urinalysis to suggest cystitis. 4. 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 Consider nonurgent spectral Doppler ultrasound ex amination of the mesenteric vessels for a better functional assessment. Electronically signed by: Memo Nina M.D. 10/23/2018 11:44 AM
[2018-10-23 12:03] LABS: iSTAT Creatinine 0.8 mg/dl (0.6-1.3); iSTAT Hemoglobin 5.4 g/dl (14.0-18.0); iSTAT Ionized Calcium 1.09 mmol/l (1.12-1.32)
[2018-10-23 12:19] LABS: Appearance Urine Cloudy (Clear); Bacteria Urine Automated 4+ (Negative); Bilirubin Urine Negative (Negative); Blood Urine Negative (Negative); Cast Urine Automated 0 /lpf (0-5); Color Urine Yellow; Glucose Urine UA Negative (Negative); Ketones Urine Negative (Negative); Leukocyte Esterase Urine 2+ (Negative); Nitrite Urine Positive (Negative); Protein Urine Negative (Negative); RBC Urine Automated 0-4 /hpf (0-4); Specific Gravity Urine 1.021 (1.000-1.030); Urobilinogen Urine Negative (Negative); WBC Urine Automated >30 /hpf (0-5)
[2018-10-23] MEDS ORDERED: DEXTROSE 50% 50 ML SYRINGE IV PRN (12:49)
[2018-10-23] MEDS ORDERED: GLUCAGON FOR INJ 1 MG VIAL SQ PRN (12:49)
[2018-10-23] MEDS ORDERED: CARBOHYDRATES FOR HYPOGLYCEMIA PO PRN (12:49)
[2018-10-23] MEDS ORDERED: GLUCOSE 40% GEL 15 GM TUBE PO PRN (12:49)
[2018-10-23] MEDS ORDERED: ONDANSETRON INJ 2 MG/ML 2 ML VIAL IV PRN ×2 (12:49→20:35)
[2018-10-23] MEDS ORDERED: GLUCOSE 10 TABS/TUBE PO PRN (12:49)
[2018-10-23] MEDS: PANTOprazole 40 MG in SYRINGE 0 ML IV SCH ×2 (13:18→23:32)
[2018-10-23] MEDS: INSULIN ASPART 100 UNITS/ML 3 ML PEN SC SCH ×3 (14:15→23:13)
--- NOTE | 2018-10-23 14:54 | Gastrointestinal Consultation ---
Date of Consultation October 23, 2018 Assessment & Plan (1) Upper GI bleed: Suspect upper GI bleed given history of NSAID & alcohol use and history of melena/coffee ground emesis. 1) Continue IV Protonix 40 mg BID as ordered by hospitalist 2) Would recommend stabilizing with transfusion of PRBCs and then EGD for further evaluation for source of bleeding 3) See anemia Present on Admission?: Yes (2) Anemia: H/H 5.4/16 in ED. 1) Transfuse PRBCs. 2) Once stabilized, plan for EGD for further evaluation of anemia. 3) Continue to monitor H/H & supportive care per primary team. Present on Admission?: Yes Supervising Physician Co-Signing Physician Notes Agree with ELODIA Helton as above Abd: Soft, NT, ND, +BS Continue current therapy Transfuse PRN to maintain H/H around 8/24 NPO after midnight EGD in AM History of Present Illness Reason for Consultation: GI bleed, anemia Attending Physician: Ana Boland, DO History of Present Illness Patient is a 58 yo male with a PMH of LOKESH, HTN, & prostate cancer who presents to the hospital with several days of coffee ground emesis & melena. He is a heavy alcohol drinker and utilizes NSAIDs. He denies abdominal pain. In the ED, his H/H was noted to be 5.4/16. He had a CT scan of the abdomen/pelvis that indicated extensive diverticulosis, though his symptoms are more presenting more characteristic of an upper GI bleed. He has been started on IV Protonix 40 mg BID by the primary hospitalist team. Last po consumption was in the ED upon arrival (was given po meds), and though he reports an episode of hematemesis & has been drinking liquids, he reports he hasn't had solid food since yesterday. It appears that there is an order for 4 units of PRBCs to be transfused and patient was receiving blood products during my evaluation. Patient denies pertinent personal or family GI history. CT scan did not indicate any concern for liver disease. Allergies Allergy/AdvReac Type Severity Reaction Status Date / Time No Known Allergies Verified 10/23/18 09:49 Home Medications Home Medications Medication Instructions Recorded Confirmed Type irbesartan 300 mg PO QAM 07/19/18 10/23/18 History tamsulosin 0.4 mg PO DAILY 10/23/18 10/23/18 History Patient History Medical History Prostate cancer Anxiety no meds Hypertension Sleep apnea does not use CPAP as ordered Surgical History History of prostate biopsy History of tooth extraction under local Family History Father No problems noted. Mother , age 75 severe arthritis No problems noted. Brother , age 56 renal cancer No problems noted. Other No family history of adverse response to anesthesia Social History Preferred Language: Panamanian Communication Ability: Effective Visual Impairment: No Limitations Beliefs That Will Affect Care: None marital status: Current Living Situation: Spouse and Family Current Living Situation Comment: Lives with and daughter current occupation: asphalt contractor Feels Safe at Home: Yes Smoking Status: Former smoker Tobacco Type: cigarettes Age Started Using Tobacco: 17 Age Quit Using Tobacco: 19 packs per day: 0.5 Second Hand Exposure: No Hx Alcohol Use: Yes Alcohol type: beer Hx Substance Use: No caffeine: Yes (tea and coffee) during the past year weight has: remained stable Dental Care, Regularly: No Physical Activity Frequency: Daily Seatbelt Use: always Sunscreen Use: Yes Review of Systems Constitutional: no fever Eyes: no acute issues Ear, Nose, Mouth, Throat: no acute issues Respiratory: no cough and no dyspnea Cardiovascular: no chest pain Gastrointestinal: + coffee ground emesis and + melena Musculoskeletal: no acute complaints Integumentary: no rash Neurologic: no confusion Psychiatric: no acute complaints Endocrine: no fatigue Hematologic / Lymphatic: no easy bleeding Physical Exam Constitutional: WD/WN, vitals as above Eyes: PERRL, conjunctivae normal, anicteric sclerae ENMT: external ear and nose normal, oropharynx normal Respiratory: normal respiratory effort, lungs clear to auscultation Cardiovascular: RRR, no murmur, no edema Gastrointestinal (Abdomen): normal bowel sounds, soft, nontender, no hepatosplenomegaly Musculoskeletal: no cyanosis or clubbing, extremities motor strength 5/5 Skin: no rashes, warm and dry Neurologic: Speech / Cognition: normal speech Psychiatric: A+Ox3, euthymic affect Results & Data Vital Signs (Past 12 Hours) Vital Signs Temp Pulse Pulse Resp BP BP Pulse Ox 10/23/18 14:29 36.6 C 78 18 121/76 100 10/23/18 14:24 36.6 C 78 18 121/76 100 10/23/18 13:43 36.6 C 83 18 117/73 100 10/23/18 13:25 36.6 C 84 18 127/78 100 10/23/18 13:10 36.6 C 83 18 122/72 100 10/23/18 12:55 36.6 C 88 18 130/77 100 10/23/18 12:52 36.6 C 89 18 113/75 100 10/23/18 12:49 36.6 C 109 H 89 18 113/75 10/23/18 12:40 36.6 C 92 H 18 113/75 100 10/23/18 12:36 36.6 C 91 H 18 113/75 10/23/18 12:00 36.8 C 82 20 127/74 97 10/23/18 11:44 36.9 C 87 20 145/86 H 100 10/23/18 11:00 89 20 132/78 100 10/23/18 10:30 79 20 106/63 100 10/23/18 09:50 107/68 10/23/18 09:29 36.4 C L 102 H 16 114/81 99 Pulse Ox 10/23/18 14:29 10/23/18 14:24 10/23/18 13:43 10/23/18 13:25 10/23/18 13:10 10/23/18 12:55 10/23/18 12:52 10/23/18 12:49 100 10/23/18 12:40 10/23/18 12:36 10/23/18 12:00 10/23/18 11:44 10/23/18 11:00 10/23/18 10:30 10/23/18 09:50 10/23/18 09:29 (1) Anemia Anemia type: unspecified type Qualified Code(s): D64.9 - Anemia, unspecified
[2018-10-23] MEDS: PIPERACILLIN/TAZOBACTAM 3.375 GM in DEXTROSE 5% 100 ML IV SCH (16:47)
[2018-10-23] MEDS ORDERED: OCTREOTIDE ACETATE 500 MCG in 0.9 % SODIUM CHLORIDE 100 ML IV SCH (20:00)
[2018-10-23] MEDS ORDERED: ATROPINE SULFATE 0.1 MG/ML 10ML SYR IV PRN (20:35)
[2018-10-23] MEDS ORDERED: ePHEDrine sulfate 50 MG/ML AMP IV PRN (20:35)
[2018-10-23] MEDS ORDERED: fentaNYL citrate 100 MCG/2 ML VIAL IV PRN (20:35)
--- NOTE | 2018-10-23 20:35 | History & Physical Bridge Note ---
Date of Service October 23, 2018 History & Physical Bridge Note I have examined the patient, reviewed the History & Physical and in the interval since the performance of the History & Physical I have noted the following changes of clinical significance: several repeated episodes of gross hematemesis. Urgent endoscopy this evening for further evalaution. Recomendations: NPO Change protonix to a continous drip Start Octreotide drip please EGD this evening.
--- NOTE | 2018-10-23 20:35 | Anesthesiology Consultation ---
Date of Service October 23, 2018 Assessment & Plan (1) Encounter for pre-operative examination: Chart Review Chart Review: Acceptable Risk for Surgery and Patient NOT seen in Pre Admission Testing Consults Requested none ASA [id number] Proposed Anesthesia Anesthesia Type: General Risk / Benefits Reviewed With: PT / POA / Parent / Guardian, Accepts Plan and Informed Consent Obtained History Surgery Operation Date: 10/23/18 20:30 Proposed Procedures p Esophagogastroduodenoscopy - Melissa Springer Operation Date: 10/24/18 08:30 Proposed Procedures p Esophagogastroduodenoscopy Dr Barahona - Cheo Carmona Case, DO Height/Weight Height: 5 ft 4 in Weight: 59.874 kg Allergies Allergy/AdvReac Type Severity Reaction Status Date / Time No Known Allergies Verified 10/23/18 09:49 Medications Home Medications Medication Instructions Recorded Confirmed Last Taken irbesartan 300 mg PO QAM 07/19/18 10/23/18 10/22/18 tamsulosin 0.4 mg PO DAILY 10/23/18 10/23/18 Unknown Active Medications Generic Name Dose Route Start Last Admin Trade Name Freq PRN Reason Stop Dose Admin Pantoprazole Sodium 40 mg/ 10 mls @ 5 mls/min 10/23/18 11:30 10/23/18 13:18 Syringe IV 10/24/18 21:01 5 mls/min BID@0900,2100 JOSIAS Administration Piperacillin Sod/Tazobactam 115 mls @ 28.75 mls/hr 10/23/18 16:00 10/23/18 19:50 Sod 3.375 gm/ Dextrose IV 11/02/18 15:59 Infused Q8H JOSIAS Infusion Protocol Insulin Aspart 0 units 10/23/18 13:00 10/23/18 16:41 Novolog Flexpen SC 11/22/18 12:59 Not Given ACHS JOSIAS Ioversol 93 ml 10/23/18 11:28 10/23/18 11:29 Optiray 320 100ml IV 10/27/18 11:27 93 ml ONCE PRN Administration Interaction Checking NPO Date Last Intake of Fluids: 10/23/18 Time Last Intake of Fluids: 16:30 Past Medical History Medical History Prostate cancer Anxiety no meds Hypertension Sleep apnea does not use CPAP as ordered Past Family History Family History Father No problems noted. Mother , age 75 severe arthritis No problems noted. Brother , age 56 renal cancer No problems noted. Other No family history of adverse response to anesthesia Past Surgical History Surgical History History of prostate biopsy History of tooth extraction under local Social History Smoking Status: Former smoker tobacco type: cigarettes Do You Dip or Chew Tobacco: No Hx Alcohol Use: Yes Alcohol type: beer alcohol intake frequency: 3 or more drinks per day Alcohol Intake Frequency Comment: 2-3 BEERS A DAY Hx Substance Use: No substance use type: does not use Physical Exam Vital Signs Last Vital Signs Temp 36.3 C L 10/23/18 20:00 Pulse 103 H 10/23/18 20:27 Resp 16 10/23/18 20:00 BP 117/83 10/23/18 20:27 Pulse Ox 100 10/23/18 19:48 Testing Laboratory Results 10/23/18 09:46 10/23/18 09:46 PT 10.6 Seconds (9.0-12.0) 10/23/18 09:46 INR 1.0 (0.9-1.1) 10/23/18 09:46 APTT < 20.0 Seconds (21.0-31.0) L 10/23/18 09:46 Urine Color Yellow 10/23/18 12:05 Urine Appearance Cloudy (Clear) A 10/23/18 12:05 Urine pH 5.0 (4.5-7.5) 10/23/18 12:05 Ur Specific [place] 1.021 (1.000-1.030) 10/23/18 12:05 Urine Protein Negative (Negative) 10/23/18 12:05 Urine Glucose (UA) Negative (Negative) 10/23/18 12:05 Urine Ketones Negative (Negative) 10/23/18 12:05 Urine Nitrite Positive (Negative) A 10/23/18 12:05 Ur Leukocyte Esterase 2+ (Negative) H 10/23/18 12:05 Urine WBC (Auto) >30 /hpf (0-5) H 10/23/18 12:05 Urine RBC (Auto) 0-4 /hpf (0-4) 10/23/18 12:05 U Hyaline Cast (Auto) 0 /lpf (0-5) 10/23/18 12:05 U Epithel Cells (Auto) 5-10 /lpf (0-5) H 10/23/18 12:05 Urine Bacteria (Auto) 4+ (Negative) H 10/23/18 12:05 Blood Type A Positive 10/23/18 09:44 Antibody Screen NEGATIVE 10/23/18 09:44 10/23/18 10/23/18 10/23/18 19:57 16:31 13:27 POC Glucose 199 H 112 H 117 H POC Glucose (other) 10/23/18 09:52 POC Glucose POC Glucose (other) 203 H Electrocardiogram Date: 10/23/18 Findings: + NSR @
[2018-10-23] MEDS ORDERED: fentaNYL citrate 100 MCG/2 ML VIAL ONE (20:46)
[2018-10-23] MEDS ORDERED: PROPOFOL IV EMULSION 10 MG/ML 20 ML VIAL IV ONE (21:02)
[2018-10-23] MEDS ORDERED: LIDOCAINE HCL 2% 2 ML VIAL/AMP(20MG/ML) INFIL ONE (21:02)
[2018-10-23] MEDS ORDERED: ONDANSETRON INJ 2 MG/ML 2 ML VIAL ONE (21:02)
[2018-10-23] MEDS ORDERED: SUCCINYLCHOLINE CHLORIDE 20 MG/ML 10 ML VIAL ONE (21:02)
--- NOTE | 2018-10-23 21:14 | Post Operative Brief Note ---
Immediate Post Op Note v1 Date of Surgery October 23, 2018 Pre & Post Diagnosis Operation Date: 10/23/18 20:30 Pre-Op Diagnosis: Upper Gastrointestinal Bleed Post-Op Diagnosis: posterior duodenal bulb ulcer with a large visible vessel Operation Date: 10/24/18 08:30 <No data on this case meets the specified criteria> Procedure Operation Date: 10/23/18 20:30 Actual Procedures p Esophagogastroduodenoscopy(Not Applicable) - Melissa Springer Operation Date: 10/24/18 08:30 <No data on this case meets the specified criteria> Surgeon Melissa Springer [employer] none Estimated Blood Loss 0 Findings See Below
--- NOTE | 2018-10-23 21:29 | Communication Note ---
Date of Service: October 23, 2018 The patient underwent urgent upper endoscopy this evening for hematemesis. We found a small ulcer with a large visible vessel. This appears to be from the posterior bulb of the duodenum and is likely consistent with a gastroduodenal artery distribution. This was treated with injection therapy cautery and placement of 4 clips resulting in cessation of bleeding. Due to the potential risk of rebleeding I would recommend a Protonix drip for 72 hours and referral to a tertiary center where interventional radiology support is available in case embolization is needed.
--- NOTE | 2018-10-23 21:36 | Anesthesiology Progress Note ---
Date of Service October 23, 2018 Anesthesia Post Procedure Vital Signs Vital Signs: Temp Pulse Pulse Resp BP BP Pulse Ox 10/23/18 20:27 103 H 117/83 10/23/18 20:00 36.3 C L 110 H 16 124/79 10/23/18 19:48 36.3 C L 107 H 18 126/86 100 10/23/18 19:14 36.2 C L 120 H 16 90/74 L 100 10/23/18 19:03 37.0 C 118 H 18 121/78 98 10/23/18 18:14 37 C 95 H 18 121/80 99 10/23/18 17:44 36.6 C 93 H 18 109/64 10/23/18 17:29 36.6 C 87 18 133/84 10/23/18 17:13 36.6 C 90 18 131/82 99 10/23/18 16:59 36.6 C 88 18 153/95 H 10/23/18 16:32 36.6 C 88 18 153/95 H 10/23/18 15:32 36.6 C 83 18 123/78 10/23/18 15:04 36.6 C 82 18 132/87 10/23/18 15:02 36.6 C 82 18 132/87 10/23/18 14:47 36.6 C 77 18 120/77 10/23/18 14:29 36.6 C 78 18 121/76 10/23/18 14:24 36.6 C 78 18 121/76 10/23/18 13:43 36.6 C 83 18 117/73 10/23/18 13:25 36.6 C 84 18 127/78 10/23/18 13:10 36.6 C 83 18 122/72 10/23/18 12:55 36.6 C 88 18 130/77 10/23/18 12:52 36.6 C 89 18 113/75 10/23/18 12:49 36.6 C 109 H 89 18 113/75 10/23/18 12:40 36.6 C 92 H 18 113/75 10/23/18 12:36 36.6 C 91 H 18 113/75 10/23/18 12:00 36.8 C 82 20 127/74 97 10/23/18 11:44 36.9 C 87 20 145/86 H 100 10/23/18 11:00 89 20 132/78 100 10/23/18 10:30 79 20 106/63 100 10/23/18 09:50 107/68 10/23/18 09:29 36.4 C L 102 H 16 114/81 99 Pulse Ox Pulse Ox 10/23/18 20:27 10/23/18 20:00 98 100 10/23/18 19:48 10/23/18 19:14 10/23/18 19:03 10/23/18 18:14 10/23/18 17:44 10/23/18 17:29 10/23/18 17:13 10/23/18 16:59 10/23/18 16:32 10/23/18 15:32 10/23/18 15:04 10/23/18 15:02 10/23/18 14:47 10/23/18 14:29 10/23/18 14:24 10/23/18 13:43 10/23/18 13:25 10/23/18 13:10 10/23/18 12:55 10/23/18 12:52 10/23/18 12:49 100 10/23/18 12:40 10/23/18 12:36 10/23/18 12:00 10/23/18 11:44 10/23/18 11:00 10/23/18 10:30 10/23/18 09:50 10/23/18 09:29 Transfer of Care Handoff Completed per policy Notes Mental Status: alert / awake / arousable Patient Amnestic to Procedure: Yes Nausea / Vomiting: adequately controlled Pain: adequately controlled Airway Patency, RR, SpO2: stable & adequate BP & HR: stable & adequate Hydration State: stable & adequate Anesthetic Complications: no major complications apparent
--- NOTE | 2018-10-23 21:44 | GI REPORT ---
Patient Name: Jerome Salcedo Procedure Date: 10/23/2018 8:46 PM Date of : 1960 Admit Type: Inpatient Age: 58 Gender: Male Attending MD: Melissa Springer DO Procedure: Upper GI endoscopy Providers: Melissa Springer DO Referring MD: Cheo Barahona DO, Elizabeth M. Martin, Do, Christopher E. Hester Indications: Hematemesis, Active gastrointestinal bleeding Medicines: General Anesthesia Complications: No immediate complications. Estimated blood loss: Minimal. Estimated Blood Loss: Estimated blood loss was minimal. Procedure: Pre-Anesthesia Assessment: - Prior to the procedure, a History and Physical was performed, and patient medications, allergies and sensitivities were reviewed. The patient's tolerance of previous anesthesia was reviewed. - The risks and benefits of the procedure and the sedation options and risks were discussed with the patient. All questions were answered and informed consent was obtained. - Patient identification and proposed procedure were verified prior to the procedure by the physician, the nurse and the anesthesiologist. The procedure was verified in the procedure room. - Pre-procedure physical examination revealed no contraindications to sedation. - ASA Grade Assessment: IV - A patient with severe systemic disease that is a constant threat to life. - After reviewing the risks and benefits, the patient was deemed in satisfactory condition to undergo the procedure. - The anesthesia plan was to use general anesthesia. - Immediately prior to administration of medications, the patient was re-assessed for adequacy to receive sedatives. - The heart rate, respiratory rate, oxygen saturations, blood pressure, adequacy of pulmonary ventilation, and response to care were monitored throughout the procedure. - The physical status of the patient was re-assessed after the procedure. After obtaining informed consent, the endoscope was passed under direct vision. Throughout the procedure, the patient's blood pressure, pulse, and oxygen saturations were monitored continuously. The scope was introduced through the mouth, and advanced to the third part of duodenum. The upper GI endoscopy was somewhat difficult due to excessive bleeding. Successful completion of the procedure was aided by performing the maneuvers documented (below) in this report. Findings: LA Grade B (one or more mucosal breaks greater than 5 mm, not extending between the tops of two mucosal folds) esophagitis with no bleeding was found in the lower third of the esophagus. There is no endoscopic evidence of varices in the entire esophagus. Red blood was found in the entire examined stomach. This was irrigated with a large amount of lavage from the stomach, no ulcerations were seen. One small, non-obstructing superficial duodenal ulcer was found in the region of the posterior duodenal bulb. The lesion was 5-7 mm in largest dimension and notable for a large visible vessel with evidence of recent bleeding. Area was successfully injected with 3 mL of a 1:10,000 solution of epinephrine for drug delivery. Coagulation for hemostasis using bipolar probe was unsuccessful. For hemostasis, four hemostatic clips were successfully placed (MR conditional, [facility]). There was no bleeding at the end of the procedure. The second portion of the duodenum and third portion of the duodenum were normal. Impression: - LA Grade B reflux esophagitis. - Red blood in the entire stomach. - One non-obstructing duodenal ulcer. Injected. Treatment not successful. Treated with bipolar cautery. Clips (MR conditional) were placed. - Normal second portion of the duodenum and third portion of the duodenum. - No specimens collected. Recommendation: - Refer to tertiary center at the next available appointment. - Give Protonix (pantoprazole): initiate therapy with 80 mg IV bolus, then 8 mg/hr IV by continuous infusion for 3 days. - No aspirin, ibuprofen, naproxen, or other non-steroidal anti-inflammatory drugs. Melissa Springer D.O. Melissa Springer, 10/23/2018 9:44:33 PM This report has been signed electronically. Note Initiated On: 10/23/2018 8:46 PM Number of Addenda: 0 I attest to the content of the Intraoperative Record and orders documented therein, exceptions below {[id number]}
[2018-10-23] MEDS ORDERED: PANTOprazole 80 MG in DEXTROSE 5% 100 ML IV SCH (21:45)
[2018-10-23] MEDS: PANTOprazole 40 MG in DEXTROSE 5% 100 ML IV SCH (23:02)
[2018-10-24] MEDS: PIPERACILLIN/TAZOBACTAM 3.375 GM in DEXTROSE 5% 100 ML IV SCH ×2 (00:17→08:30)
[2018-10-24 01:18] LABS: Nucleated RBC # (auto) 0.03 K/uL (0-0); Nucleated RBC % (auto) 0.1 %
[2018-10-24 01:39] LABS: Hematocrit (blood only) 23.2 % (42-52); Hemoglobin 8.1 g/dL (14.0-18.0); Mean Corpuscular Hgb Conc 34.9 g/dL (32-36); Mean Platelet Volume 8.3 fL (7.4-10.4); Platelet Count 200 K/uL (130-400); RDW Coefficient of Variation 16.3 % (11.5-14.5); RDW Standard Deviation 49.5 fL (36.4-46.3); Red Blood Count 2.73 M/uL (4.7-6.1)
[2018-10-24 01:40] LABS: Basophils # (auto) 0.04 K/uL (0-0.2); Basophils % (auto) 0.2 %; Eosinophils # (auto) 0.04 K/uL (0-0.5); Eosinophils % (auto) 0.2 %; Immature Granulocytes # (auto) 0.17 K/uL (0.00-0.02); Lymphocytes # (auto) 1.02 K/uL (1.2-3.4); Lymphocytes % (auto) 5.9 %; Neutrophils # (auto) 15.43 K/uL (1.4-6.5); Neutrophils % (auto) 88.7 %; Platelet Estimate Normal (Normal); Polychromasia 1+
[2018-10-24] MEDS: PANTOprazole 40 MG in DEXTROSE 5% 100 ML IV SCH ×5 (02:11→21:39)
[2018-10-24] MEDS ORDERED: ICU PROTOCOL FOR HYPERGLYCEMIA PRN (03:37)
[2018-10-24] MEDS ORDERED: NORMOSOL-R 1,000 ML IV SCH (03:45)
--- NOTE | 2018-10-24 03:55 | Critical Care Consultation ---
Date of Consultation October 24, 2018 Assessment & Plan (1) Upper GI bleed: Reason Critically Ill: 58-year-old male with upper GI bleed, underwent EGD with clips placed Neuro - [facility] ICU: Negative Cardiac - HTN: We will hold antihypertensives for now given acute blood loss Respiratory - Patient maintaining oxygen saturation room air, monitor GI - Duodenal ulcer/upper GI bleedpatient underwent EGD and duodenal ulcer injected with epi and clips placed x4 -GI consulted, will follow recs -Continue Protonix drip -N.p.o. for now -Monitor for hematemesis -Avoid NSAIDs RENAL/LYTES - BUN/creatinine within normal limits, will monitor electrolytes this routine BMPs Normosol 80 mL per hour - Currently reporting no difficulty, will restart Flomax when appropriate ENDO - Currently euglycemic, ICU hyperglycemia protocol HEME - Acute blood loss anemiahemoglobin 6.2 on admission -Transfused with RBCs x4, repeat hemoglobin 8.1 -Source of blood loss stopped during EGD, see above -We will monitor with every 6 hours CBCs, and transfuse as necessary ID - Zosyn LINES/IV ACCESS - Peripheral IVs DVT PROPHYLAXIS - SCDs, holding anticoagulation giving upper GI bleed I have personally spent 40 minutes of critical care time in the direct management of this patient. This is a life/limb threatening event. This includes time spent evaluating patient, direct bedside care, chart review, placing orders, interpretation of diagnostic studies, discussion with consultants, patient, and family members, as well as other required patient management activities. This time is exclusive of all separately billable procedures, and teaching time and separate from and in addition to any other critical care service time. Thank you for allowing us to participate in the care of this patient. Please refer to my attending physician's documentation for any further recommendations. (2) Hypertension: (3) Anemia: Supervising Physician Co-Signing Physician Notes I have reviewed the documentation. I agree with assessment and plan of Toby CASEY. History of Present Illness Attending Physician: Ana Boland DO History of Present Illness is a 58-year-old male with past medical history prostate cancer, hypertension, anxiety who presented to the emergency department with reported tarry stools ongoing for 3 to 4 days. Had 2 episodes of coffee-ground emesis yesterday morning and had episodes of hematemesis in the ED and was found to be anemic. Patient reportedly drinks 2-3 beers per day and takes ibuprofen and Excedrin on a regular basis. Patient was transfused with RBCs x4 underwent endoscopy. EGD revealed esophagitis, duodenal ulcer which was injected with epi and clips x4 successfully placed. Plan was transfer to tertiary care, however it was declined when hospitalist attempted to transfer. Patient is now admitted to ICU given acuity of current illness. Patient is currently hemodynamically stable on room air. He denies headache, dizziness/lightheadedness, nausea vomiting, shortness of breath, palpitations, pain, weakness. Allergies Allergy/AdvReac Type Severity Reaction Status Date / Time No Known Allergies Verified 10/23/18 09:49 Home Medications Home Medications Medication Instructions Recorded Confirmed Type irbesartan 300 mg PO QAM 07/19/18 10/23/18 History tamsulosin 0.4 mg PO DAILY 10/23/18 10/23/18 History Patient History Medical History Prostate cancer Anxiety no meds Hypertension Sleep apnea does not use CPAP as ordered Surgical History History of prostate biopsy History of tooth extraction under local Family History Father No problems noted. Mother , age 75 severe arthritis No problems noted. Brother , age 56 renal cancer No problems noted. Other No family history of adverse response to anesthesia Social History Preferred Language: Vincentian Communication Ability: Effective Visual Impairment: No Limitations Beliefs That Will Affect Care: None marital status: Current Living Situation: Spouse and Family Current Living Situation Comment: Lives with and daughter current occupation: asphalt contractor Feels Safe at Home: Yes Smoking Status: Former smoker Tobacco Type: cigarettes Age Started Using Tobacco: 17 Age Quit Using Tobacco: 19 packs per day: 0.5 Second Hand Exposure: No Hx Alcohol Use: Yes Alcohol type: beer Hx Substance Use: No caffeine: Yes (tea and coffee) during the past year weight has: remained stable Dental Care, Regularly: No Physical Activity Frequency: Daily Seatbelt Use: always Sunscreen Use: Yes Review of Systems Review of Systems: All systems reviewed & are unremarkable except as noted in HPI & below Physical Exam Constitutional: cooperative; no acute distress Eyes: PERRL, conjunctivae normal, anicteric sclerae ENMT: external ear and nose normal, oropharynx normal Neck: trachea midline, no thyromegaly Respiratory: normal respiratory effort, lungs clear to auscultation Cardiovascular: RRR, no murmur, no edema Heart Sounds: normal S1 and normal S2 Vessels: no JVD Extremities: normal capillary refill Gastrointestinal (Abdomen): normal bowel sounds, soft, nontender, no hepatosplenomegaly Musculoskeletal: no cyanosis or clubbing, extremities motor strength 5/5 Skin: no rashes, warm and dry Neurologic: PERRL, EOMI, accommodation nl, no face palsy, no dysarthria Psychiatric: A+Ox3, euthymic affect Results & Data Vital Signs (Past 12 Hours) Vital Signs Temp Pulse Pulse Resp BP BP Pulse Ox 10/24/18 03:45 69 16 118/73 99 10/24/18 03:37 76 70 16 118/73 98 10/24/18 03:31 85 20 109/85 98 10/24/18 03:15 69 17 116/74 99 10/24/18 03:00 67 16 137/81 100 10/24/18 02:45 74 14 123/85 99 10/24/18 02:31 79 18 135/95 100 10/24/18 02:01 82 16 99 10/24/18 02:00 76 16 136/84 99 10/24/18 01:45 78 19 132/90 99 10/24/18 01:30 77 15 130/86 98 10/24/18 01:18 79 18 141/99 H 100 10/24/18 01:00 77 18 118/75 99 10/24/18 00:47 10/24/18 00:45 71 17 127/79 100 10/24/18 00:31 73 18 99 10/24/18 00:30 78 20 127/76 96 10/24/18 00:20 83 14 99 10/24/18 00:15 80 14 173/160 H 100 10/24/18 00:10 76 14 98 10/24/18 00:01 78 14 100 10/24/18 00:00 78 14 147/91 H 99 10/23/18 23:50 77 14 100 10/23/18 23:45 78 16 127/77 100 10/23/18 23:40 79 16 99 10/23/18 23:31 79 16 150/97 H 99 10/23/18 23:30 81 21 90 10/23/18 23:20 81 16 99 10/23/18 23:15 82 16 122/89 99 10/23/18 23:10 83 16 99 10/23/18 23:01 76 18 99 10/23/18 23:00 36.7 C 80 12 145/88 H 100 10/23/18 22:50 81 8 L 99 10/23/18 22:46 100 10/23/18 22:45 149/109 H 99 10/23/18 22:42 159/111 H 10/23/18 22:20 83 0 L 100 10/23/18 22:15 83 20 153/98 H 100 10/23/18 22:11 83 19 100 10/23/18 22:10 85 19 152/94 H 100 10/23/18 22:05 83 18 156/93 H 100 10/23/18 22:01 78 13 100 10/23/18 22:00 36.1 C L 82 80 22 133/89 133/89 100 10/23/18 21:55 85 19 142/86 H 100 10/23/18 21:51 84 6 L 100 10/23/18 21:50 36.1 C L 91 H 92 H 25 H 141/73 H 141/73 H 100 10/23/18 21:45 85 19 140/101 H 100 10/23/18 21:41 85 15 100 10/23/18 21:40 83 17 148/91 H 100 10/23/18 21:35 84 18 133/99 100 10/23/18 21:31 86 17 100 10/23/18 21:30 36.1 C L 85 87 16 142/98 H 143/98 H 100 10/23/18 21:27 90 21 146/93 H 99 10/23/18 21:22 100 10/23/18 21:21 36.1 C L 95 H 20 143/95 H 143/95 H 100 10/23/18 20:27 103 H 117/83 10/23/18 20:00 36.3 C L 107 H 16 124/79 10/23/18 19:50 105 H 10/23/18 19:48 36.3 C L 107 H 18 126/86 100 10/23/18 19:41 131 H 10/23/18 19:30 105 H 10/23/18 19:20 113 H 10/23/18 19:14 36.2 C L 120 H 16 90/74 L 100 10/23/18 19:10 109 H 10/23/18 19:03 37.0 C 118 H 18 121/78 98 10/23/18 19:00 132 H 10/23/18 18:50 151 H 10/23/18 18:40 96 H 10/23/18 18:30 96 H 10/23/18 18:20 94 H 10/23/18 18:14 37 C 95 H 18 121/80 99 10/23/18 18:10 124 H 10/23/18 18:00 97 H 10/23/18 17:50 93 H 10/23/18 17:44 36.6 C 93 H 18 109/64 100 10/23/18 17:40 109 H 10/23/18 17:30 87 10/23/18 17:29 36.6 C 87 18 133/84 99 10/23/18 17:20 109 H 10/23/18 17:13 36.6 C 90 18 131/82 99 10/23/18 17:10 88 10/23/18 17:00 84 10/23/18 16:59 36.6 C 88 18 153/95 H 100 10/23/18 16:50 87 10/23/18 16:40 87 10/23/18 16:32 36.6 C 88 18 153/95 H 100 10/23/18 16:30 88 10/23/18 16:20 88 10/23/18 16:10 86 10/23/18 16:00 85 Pulse Ox Pulse Ox 10/24/18 03:45 10/24/18 03:37 10/24/18 03:31 10/24/18 03:15 10/24/18 03:00 10/24/18 02:45 10/24/18 02:31 10/24/18 02:01 10/24/18 02:00 10/24/18 01:45 10/24/18 01:30 10/24/18 01:18 10/24/18 01:00 10/24/18 00:47 98 98 10/24/18 00:45 10/24/18 00:31 10/24/18 00:30 10/24/18 00:20 10/24/18 00:15 10/24/18 00:10 10/24/18 00:01 10/24/18 00:00 10/23/18 23:50 10/23/18 23:45 10/23/18 23:40 10/23/18 23:31 10/23/18 23:30 10/23/18 23:20 10/23/18 23:15 10/23/18 23:10 10/23/18 23:01 10/23/18 23:00 10/23/18 22:50 10/23/18 22:46 10/23/18 22:45 10/23/18 22:42 10/23/18 22:20 10/23/18 22:15 10/23/18 22:11 10/23/18 22:10 10/23/18 22:05 10/23/18 22:01 10/23/18 22:00 10/23/18 21:55 10/23/18 21:51 10/23/18 21:50 10/23/18 21:45 10/23/18 21:41 10/23/18 21:40 10/23/18 21:35 10/23/18 21:31 10/23/18 21:30 10/23/18 21:27 10/23/18 21:22 10/23/18 21:21 10/23/18 20:27 10/23/18 20:00 98 100 10/23/18 19:50 10/23/18 19:48 10/23/18 19:41 10/23/18 19:30 10/23/18 19:20 10/23/18 19:14 10/23/18 19:10 10/23/18 19:03 10/23/18 19:00 10/23/18 18:50 10/23/18 18:40 10/23/18 18:30 10/23/18 18:20 10/23/18 18:14 10/23/18 18:10 10/23/18 18:00 10/23/18 17:50 10/23/18 17:44 10/23/18 17:40 10/23/18 17:30 10/23/18 17:29 10/23/18 17:20 10/23/18 17:13 10/23/18 17:10 10/23/18 17:00 10/23/18 16:59 10/23/18 16:50 10/23/18 16:40 10/23/18 16:32 10/23/18 16:30 10/23/18 16:20 10/23/18 16:10 10/23/18 16:00 Laboratory Results Laboratory Results - last 24 hr 10/23/18 10/23/18 10/23/18 09:44 09:46 09:46 WBC RBC Hgb POC Hgb Hct POC Hct MCV MCH MCHC RDW Std Deviation RDW Coeff of [place] Plt Count MPV Immature Gran % (Auto) Neut % (Auto) Lymph % (Auto) Whiteside % (Auto) Eos % (Auto) Baso % (Auto) Immature Gran # (Auto) Neut # (Auto) Lymph # (Auto) Whiteside # (Auto) Eos # (Auto) Baso # (Auto) Absolute Nucleated RBC Nucleated RBC % (auto) Platelet Estimate RBC Morphology Polychromasia ESR 5 PT 10.6 INR 1.0 APTT < 20.0 L PTT Ratio 0.7 POC Sodium Sodium POC Potassium Potassium POC Chloride Chloride Carbon Dioxide POC Total CO2 Anion Gap POC Anion Gap POC BUN BUN Creatinine POC Creatinine Est Cr Clr Drug Dosing Est GFR ( Amer) Est GFR (Non-Af Amer) BUN/Creatinine Ratio Glucose POC Glucose POC Glucose (other) Calcium POC Ioniz Calcium Mile Magnesium Total Bilirubin AST ALT Alkaline Phosphatase Troponin I C-Reactive Protein Total Protein Albumin Globulin Albumin/Globulin Ratio TSH Urine Color Urine Appearance Urine pH Ur Specific Reliance Urine Protein Urine Glucose (UA) Urine Ketones Urine Blood Urine Nitrite Urine Bilirubin Urine Urobilinogen Ur Leukocyte Esterase Urine WBC (Auto) Urine RBC (Auto) U Hyaline Cast (Auto) U Epithel Cells (Auto) Urine Bacteria (Auto) Nasal Screen MRSA (PCR) Hepatitis C Ab Screen Blood Type A Positive Blood Type Recheck Antibody Screen NEGATIVE Crossmatch See Detail 10/23/18 10/23/18 10/23/18 09:46 09:46 09:52 WBC 19.14 H RBC 2.03 L Hgb 6.2 L* POC Hgb 5.4 L* Hct 17.7 L* POC Hct 16 L* MCV 87.2 MCH 30.5 MCHC 35.0 RDW Std Deviation 46.7 H RDW Coeff of [place] 15.1 H Plt Count 432 H MPV 8.1 Immature Gran % (Auto) 1.4 Neut % (Auto) 85.9 Lymph % (Auto) 9.9 Whiteside % (Auto) 2.5 Eos % (Auto) 0.2 Baso % (Auto) 0.1 Immature Gran # (Auto) 0.27 H Neut # (Auto) 16.45 H Lymph # (Auto) 1.89 Whiteside # (Auto) 0.47 Eos # (Auto) 0.04 Baso # (Auto) 0.02 Absolute Nucleated RBC Nucleated RBC % (auto) Platelet Estimate RBC Morphology Unremarkable Polychromasia ESR PT INR APTT PTT Ratio POC Sodium 134 L Sodium 135 L POC Potassium 4.0 Potassium 4.0 POC Chloride 101 Chloride 102 Carbon Dioxide 23 POC Total CO2 19 L Anion Gap 10.0 POC Anion Gap 19.0 POC BUN 42 H BUN 43 H Creatinine 0.92 POC Creatinine 0.8 Est Cr Clr Drug Dosing Not Reportable Est GFR ( Amer) 105.9 Est GFR (Non-Af Amer) 91.4 BUN/Creatinine Ratio 47.4 H Glucose 202 H POC Glucose POC Glucose (other) 203 H Calcium 7.8 L POC Ioniz Calcium Mile 1.09 L Magnesium 2.2 Total Bilirubin 0.2 AST 8 L ALT 23 Alkaline Phosphatase 50 Troponin I < 0.015 C-Reactive Protein < 0.29 Total Protein 5.6 L Albumin 2.8 L Globulin 2.8 Albumin/Globulin Ratio 1.0 TSH 2.870 Urine Color Urine Appearance Urine pH Ur Specific Reliance Urine Protein Urine Glucose (UA) Urine Ketones Urine Blood Urine Nitrite Urine Bilirubin Urine Urobilinogen Ur Leukocyte Esterase Urine WBC (Auto) Urine RBC (Auto) U Hyaline Cast (Auto) U Epithel Cells (Auto) Urine Bacteria (Auto) Nasal Screen MRSA (PCR) Hepatitis C Ab Screen Blood Type Blood Type Recheck Antibody Screen Crossmatch 10/23/18 10/23/18 10/23/18 09:52 10:22 12:05 WBC RBC Hgb POC Hgb Hct POC Hct MCV MCH MCHC RDW Std Deviation RDW Coeff of [place] Plt Count MPV Immature Gran % (Auto) Neut % (Auto) Lymph % (Auto) Whiteside % (Auto) Eos % (Auto) Baso % (Auto) Immature Gran # (Auto) Neut # (Auto) Lymph # (Auto) Whiteside # (Auto) Eos # (Auto) Baso # (Auto) Absolute Nucleated RBC Nucleated RBC % (auto) Platelet Estimate RBC Morphology Polychromasia ESR PT INR APTT PTT Ratio POC Sodium Sodium POC Potassium Potassium POC Chloride Chloride Carbon Dioxide POC Total CO2 Anion Gap POC Anion Gap POC BUN BUN Creatinine POC Creatinine Est Cr Clr Drug Dosing Est GFR ( Amer) Est GFR (Non-Af Amer) BUN/Creatinine Ratio Glucose POC Glucose POC Glucose (other) Calcium POC Ioniz Calcium Mile Magnesium Total Bilirubin AST ALT Alkaline Phosphatase Troponin I C-Reactive Protein Total Protein Albumin Globulin Albumin/Globulin Ratio TSH Urine Color Yellow Urine Appearance Cloudy A Urine pH 5.0 Ur Specific Reliance 1.021 Urine Protein Negative Urine Glucose (UA) Negative Urine Ketones Negative Urine Blood Negative Urine Nitrite Positive A Urine Bilirubin Negative Urine Urobilinogen Negative Ur Leukocyte Esterase 2+ H Urine WBC (Auto) >30 H Urine RBC (Auto) 0-4 U Hyaline Cast (Auto) 0 U Epithel Cells (Auto) 5-10 H Urine Bacteria (Auto) 4+ H Nasal Screen MRSA (PCR) Hepatitis C Ab Screen Neg Blood Type Blood Type Recheck A Positive Antibody Screen Crossmatch 10/23/18 10/23/18 10/23/18 13:27 16:31 19:57 WBC RBC Hgb POC Hgb Hct POC Hct MCV MCH MCHC RDW Std Deviation RDW Coeff of [place] Plt Count MPV Immature Gran % (Auto) Neut % (Auto) Lymph % (Auto) Whiteside % (Auto) Eos % (Auto) Baso % (Auto) Immature Gran # (Auto) Neut # (Auto) Lymph # (Auto) Whiteside # (Auto) Eos # (Auto) Baso # (Auto) Absolute Nucleated RBC Nucleated RBC % (auto) Platelet Estimate RBC Morphology Polychromasia ESR PT INR APTT PTT Ratio POC Sodium Sodium POC Potassium Potassium POC Chloride Chloride Carbon Dioxide POC Total CO2 Anion Gap POC Anion Gap POC BUN BUN Creatinine POC Creatinine Est Cr Clr Drug Dosing Est GFR ( Amer) Est GFR (Non-Af Amer) BUN/Creatinine Ratio Glucose POC Glucose 117 H 112 H 199 H POC Glucose (other) Calcium POC Ioniz Calcium [place] Magnesium Total Bilirubin AST ALT Alkaline Phosphatase Troponin I C-Reactive Protein Total Protein Albumin Globulin Albumin/Globulin Ratio TSH Urine Color Urine Appearance Urine pH Ur Specific Reliance Urine Protein Urine Glucose (UA) Urine Ketones Urine Blood Urine Nitrite Urine Bilirubin Urine Urobilinogen Ur Leukocyte Esterase Urine WBC (Auto) Urine RBC (Auto) U Hyaline Cast (Auto) U Epithel Cells (Auto) Urine Bacteria (Auto) Nasal Screen MRSA (PCR) Hepatitis C Ab Screen Blood Type Blood Type Recheck Antibody Screen Crossmatch 10/23/18 10/23/18 10/24/18 22:56 23:45 01:05 WBC 17.40 H RBC 2.73 L Hgb 8.1 L POC Hgb Hct 23.2 L POC Hct MCV 85.0 MCH 29.7 MCHC 34.9 RDW Std Deviation 49.5 H RDW Coeff of [place] 16.3 H Plt Count 200 D MPV 8.3 Immature Gran % (Auto) 1.0 Neut % (Auto) 88.7 Lymph % (Auto) 5.9 Whiteside % (Auto) 4.0 Eos % (Auto) 0.2 Baso % (Auto) 0.2 Immature Gran # (Auto) 0.17 H Neut # (Auto) 15.43 H Lymph # (Auto) 1.02 L Whiteside # (Auto) 0.70 H Eos # (Auto) 0.04 Baso # (Auto) 0.04 Absolute Nucleated RBC 0.03 H Nucleated RBC % (auto) 0.1 Platelet Estimate Normal RBC Morphology Polychromasia 1+ ESR PT INR APTT PTT Ratio POC Sodium Sodium POC Potassium Potassium POC Chloride Chloride Carbon Dioxide POC Total CO2 Anion Gap POC Anion Gap POC BUN BUN Creatinine POC Creatinine Est Cr Clr Drug Dosing Est GFR ( Amer) Est GFR (Non-Af Amer) BUN/Creatinine Ratio Glucose POC Glucose 188 H POC Glucose (other) Calcium POC Ioniz Calcium [place] Magnesium Total Bilirubin AST ALT Alkaline Phosphatase Troponin I C-Reactive Protein Total Protein Albumin Globulin Albumin/Globulin Ratio TSH Urine Color Urine Appearance Urine pH Ur Specific Reliance Urine Protein Urine Glucose (UA) Urine Ketones Urine Blood Urine Nitrite Urine Bilirubin Urine Urobilinogen Ur Leukocyte Esterase Urine WBC (Auto) Urine RBC (Auto) U Hyaline Cast (Auto) U Epithel Cells (Auto) Urine Bacteria (Auto) Nasal Screen MRSA (PCR) Negative Hepatitis C Ab Screen Blood Type Blood Type Recheck Antibody Screen Crossmatch PG Care Time/CCT Total # of Minutes Spent Total Time Spent with Patient: Total time spent is greater than 50% in coordination of care (as documented) at patient's floor/unit and/or counseling patient: (1) Anemia Anemia type: unspecified type Qualified Code(s): D64.9 - Anemia, unspecified (2) Hypertension Hypertension type: essential hypertension Qualified Code(s): I10 - Essential (primary) hypertension
[2018-10-24 04:39] LABS: BUN Creatinine Ratio 38.4 (10-20); Calcium 6.8 mg/dl (8.5-10.1); Creatinine Clr Calc Pharmacy 68.1 ml/min; Est GFR (African American) 96.9; Est GFR (Non-African American) 83.6; Potassium 4.2 mmol/L (3.5-5.1)
[2018-10-24 04:47] LABS: Fibrinogen 203 mg/dl (184-400); INR 1.1 (0.9-1.1); Prothrombin Time 10.9 Seconds (9.0-12.0)
[2018-10-24 05:44] LABS: Hematocrit (blood only) 22.6 % (42-52)
[2018-10-24 06:19] LABS: Estimated Average Glucose 111 mg/dl; Hemoglobin A1C 5.5 % (4.5-5.6)
[2018-10-24] MEDS: INSULIN ASPART 100 UNITS/ML 3 ML PEN SC SCH ×4 (08:29→21:38)
[2018-10-24] MEDS ORDERED: TAMSULOSIN HCL 0.4 MG CAP PO SCH (09:00)
--- NOTE | 2018-10-24 09:58 | Gastroenterology Progress Note ---
Date of Service October 24, 2018 Assessment & Plan (1) Upper GI bleed: (2) Duodenal ulcer: 1. Agree with Dr. Springer to transfer patient to a tertiary center. 2. Continue Protonix ggt at 8 mg/hr. 3. Avoid all NSAIDs and alcohol. 4. Continue supportive care. Supervising Physician Co-Signing Physician Notes Agree with CARMELA Carter as above Abd: Soft, NT, ND, +BS Isis did attempt to reach attending exhibition designer at [facility], and he did not return call Patient had black/bloody BM today, which may be residual from yesterday, however, would recommend transfer now to tertiary center with IR capabilities, as per request of Dr. Springer, who performed the EGD last evening Continue PPI gtt for 72 hours, then twice daily PPI thereafter Subjective Patient reports that he is passing both bright red and black stools this morning. Tolerating clear liquids. No nausea or vomiting or hematemesis. Remains on a PPI ggt. EGD last evening with findings of duodenal ulcer with stigmata which was treated with Endoclip placement and cautery. Dr. Springer recommended tertiary transfer due to potential risk of rebleeding. H&H this morning was noted to be 8.0/22.6. Review of Systems Constitutional: no fever and no chills Respiratory: no cough Cardiovascular: no chest pain and no chest pain at rest Gastrointestinal: no abdominal pain Neurologic: no dizziness and no syncope Psychiatric: no problem reported Physical Exam Constitutional: WD/WN, vitals as above Respiratory: normal respiratory effort, lungs clear to auscultation Cardiovascular: Rate/Rhythm: regular rate and regular rhythm Gastrointestinal (Abdomen): normal bowel sounds, soft, nontender, no hepatosplenomegaly Psychiatric: A+Ox3, euthymic affect Results & Data Vital Signs (Past 12 Hours) Vital Signs Temp Pulse Pulse Resp BP BP Pulse Ox 10/24/18 06:34 71 136/84 99 10/24/18 05:45 70 12 139/79 100 10/24/18 05:44 79 4 L 117/79 100 10/24/18 05:30 73 16 149/83 H 100 10/24/18 05:15 64 17 132/83 100 10/24/18 05:01 73 16 100 10/24/18 05:00 60 12 181/73 H 100 10/24/18 04:45 71 14 159/92 H 100 10/24/18 04:30 74 14 147/85 H 99 10/24/18 04:15 68 16 132/88 100 10/24/18 04:01 36.8 C 76 16 99 10/24/18 04:00 70 18 110/70 99 10/24/18 03:45 69 16 118/73 99 10/24/18 03:37 76 70 16 118/73 98 10/24/18 03:31 85 20 109/85 98 10/24/18 03:15 69 17 116/74 99 10/24/18 03:00 67 16 137/81 100 10/24/18 02:45 74 14 123/85 99 10/24/18 02:31 79 18 135/95 100 10/24/18 02:01 82 16 99 10/24/18 02:00 76 16 136/84 99 10/24/18 01:45 78 19 132/90 99 10/24/18 01:30 77 15 130/86 98 10/24/18 01:18 79 18 141/99 H 100 10/24/18 01:00 77 18 118/75 99 10/24/18 00:47 10/24/18 00:45 71 17 127/79 100 10/24/18 00:31 73 18 99 10/24/18 00:30 78 20 127/76 96 10/24/18 00:20 83 14 99 10/24/18 00:15 80 14 173/160 H 100 10/24/18 00:10 76 14 98 10/24/18 00:01 78 14 100 10/24/18 00:00 78 14 147/91 H 99 10/23/18 23:50 77 14 100 10/23/18 23:45 78 16 127/77 100 10/23/18 23:40 79 16 99 10/23/18 23:31 79 16 150/97 H 99 10/23/18 23:30 81 21 90 10/23/18 23:20 81 16 99 10/23/18 23:15 82 16 122/89 99 10/23/18 23:10 83 16 99 10/23/18 23:01 76 18 99 10/23/18 23:00 36.7 C 80 12 145/88 H 100 10/23/18 22:50 81 8 L 99 10/23/18 22:46 100 10/23/18 22:45 149/109 H 99 10/23/18 22:42 159/111 H 10/23/18 22:20 83 0 L 100 10/23/18 22:15 83 20 153/98 H 100 10/23/18 22:11 83 19 100 10/23/18 22:10 85 19 152/94 H 100 10/23/18 22:05 83 18 156/93 H 100 10/23/18 22:01 78 13 100 10/23/18 22:00 36.1 C L 82 80 22 133/89 133/89 100 10/23/18 21:55 85 19 142/86 H 100 Pulse Ox Pulse Ox 10/24/18 06:34 10/24/18 05:45 10/24/18 05:44 10/24/18 05:30 10/24/18 05:15 10/24/18 05:01 10/24/18 05:00 10/24/18 04:45 10/24/18 04:30 10/24/18 04:15 10/24/18 04:01 10/24/18 04:00 10/24/18 03:45 10/24/18 03:37 10/24/18 03:31 10/24/18 03:15 10/24/18 03:00 10/24/18 02:45 10/24/18 02:31 10/24/18 02:01 10/24/18 02:00 10/24/18 01:45 10/24/18 01:30 10/24/18 01:18 10/24/18 01:00 10/24/18 00:47 98 98 10/24/18 00:45 10/24/18 00:31 10/24/18 00:30 10/24/18 00:20 10/24/18 00:15 10/24/18 00:10 10/24/18 00:01 10/24/18 00:00 10/23/18 23:50 10/23/18 23:45 10/23/18 23:40 10/23/18 23:31 10/23/18 23:30 10/23/18 23:20 10/23/18 23:15 10/23/18 23:10 10/23/18 23:01 10/23/18 23:00 10/23/18 22:50 10/23/18 22:46 10/23/18 22:45 10/23/18 22:42 10/23/18 22:20 10/23/18 22:15 10/23/18 22:11 10/23/18 22:10 10/23/18 22:05 10/23/18 22:01 10/23/18 22:00 10/23/18 21:55
[2018-10-24 11:13] LABS: Hematocrit (blood only) 21.6 % (42-52); Hemoglobin 7.7 g/dL (14.0-18.0)
--- NOTE | 2018-10-24 15:44 | Family Medicine Progress Note ---
Date of Service October 24, 2018 Assessment & Plan (1) Duodenal ulcer hemorrhage: 58-year-old male was admitted on 23 October 2018 for dizziness, fatigue, and upper GI bleed. Duodenal ulcer hemorrhage, anemia: Noted coffee-ground emesis and melena, likely related to alcohol and NSAID use. No history of same. Placed on Protonix drip and octreotide. Admit Hb 6.2. Transfused [address] a/p IV con only noted extensive diverticulosis (see full report). See related GI notes. Underwent emergent EGD on which noted reflux esophagitis and a duodenal ulcer which was treated with cautery and clips. Recommended Protonix drip for 72 hours and referral to tertiary center for IR. - Discussed case on the phone with GI. They kindly made a phone call to [facility] and are awaiting a phone call back on if they can accept this patient for further care. Leukocytosis: Admit WBC 19. Recent reports of fever and chills, thought to be reactive. pCXR clear. 15Jul UCx positive for Gram neg bacilli with sensitivities pending. Question of pyelo on CT a/p. 15Jul empirically started on Zosyn. Hyperglycemia: History of same. 16Jul HbA1c is 5.5. On insulin sliding scale as inpatient. Incidental CT a/p findings: - Patchy enhancement of the right kidney concerning for pyelonephritis or less likely small infarcts. 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 --- Ordered mesenteric u/s for further evaluation. Ongoing medical issues: - Hypertension: Holding home irbesartan in setting of acute bleed. - Anxiety: Not on any medicines at home for this. - Prostate cancer: Urologist is Dr. Andrade. S/p biopsy in late August 2018. No evidence of metastatic disease by bone scan in September. Plans for radical prostatectomy in the fall. Held home tamsulosin. - Alcohol use: Drinks about 2-3 beers daily, last on Tuesday 13Jul. - LOKESH: Reported not compliant with CPAP. Will use here and encouraged for home. Code status: Full code. Diet: Clear liquid diet. DVT prophy: SCDs. Chemical prophylaxis held due to acute GI bleed. PT/OT: Deferred. Disbo: Admitted to PCU telemetry. (2) Anemia: (3) Leukocytosis: (4) Hyperglycemia: (5) Hypertension: (6) Anxiety: (7) Prostate cancer: (8) Alcohol use: (9) LOKESH on CPAP: Supervising Physician Co-Signing Physician Notes Patient seen and examined independently of Dr. Ayala. Agree with history, exam findings, assessment and plan of care. In brief, 58 year old male with hx of prostate Ca (active surveillance), HTN, anxiety admitted with upper GI bleed after presenting with several days of melena and coffee ground emesis. Has not had any further melena or coffee ground emesis since this morning. Well appearing today. Good color with pink conjuctivia. 1. Upper GI bleed: sips/chips, clears. IV Protonix gtt, s/p PRBCs x4. EGD with blood within the entire stomach, duodenal ulcer with large visible ulcer that was unable to be injected. Cauterized and clips placed. Will need transfer to tertiary facility--appreciate GI coordinating this as I think it would be most useful to have pci security consultant to pci security consultant beckciation as the majority of his care at a receiving facility would require GI consultation. 2. Symptomatic anemia secondary to blood loss - syncopal episode in ED, CT head normal. - hgb 6.2 on admission-->8 3. Leukocytosis. -?secondary to infection (see below) vs. inflammation 4. Abnormal UA: - CT abd/pelvis with patchy enhancement of the right kidney ?underlying pyelo. zosyn for possible pyelo. 4. Hypertension. Hold antihypertensives. 5. Prostate cancer. - recent dx, ok to hold off on urology consultation for now unless there is a change in his clinical status that would require their input regarding his prostate cancer. Subjective Met with patient earlier this morning while he was still in ICU and again after his transfer to PCU. On both occasions patient stated overall that he felt well and that he was hungry. He did note an episode of melanotic stool earlier this morning but none since. He denies any abdominal pain, chest pain, shortness of breath, or other acute physical symptoms. He has a variety of questions about when he will be transferred and if he can take his home blood pressure medicines. Otherwise no particular concerns. Patient's son was also at bedside and ask questions about the transfer process. Review of Systems Review of Systems: Per HPI as above. Physical Exam Physical Exam: General Appearance: Awake, alert & oriented, comfortable in general, NAD. CV: +S1S2 RRR, no murmur. Pulm: Clear to auscultation throughout. Abdomen: +BS, soft, non-tender, non-distended. Extremities: No pedal edema or calf tenderness. Moving all extremities naturally and easily. Neuro: No gross neuro deficits. Lines: PIV x2. Results & Data Vital Signs (Past 12 Hours) Vital Signs Temp Pulse Pulse Resp BP BP Pulse Ox 10/24/18 13:17 36.9 C 72 16 149/68 H 100 10/24/18 12:30 72 22 10/24/18 12:00 92 H 18 10/24/18 11:30 75 20 100 10/24/18 11:00 74 22 100 10/24/18 10:30 70 24 100 10/24/18 10:00 87 22 99 10/24/18 09:31 76 99 10/24/18 09:30 73 153/83 H 10/24/18 09:00 71 152/91 H 100 10/24/18 08:32 72 100 10/24/18 08:30 74 160/91 H 99 10/24/18 08:01 68 100 10/24/18 08:00 68 135/92 100 10/24/18 07:31 75 100 10/24/18 07:30 70 127/97 100 10/24/18 07:01 74 99 10/24/18 07:00 71 125/84 100 10/24/18 06:45 74 100 10/24/18 06:34 71 136/84 99 10/24/18 05:45 70 12 139/79 100 10/24/18 05:44 79 4 L 117/79 100 10/24/18 05:30 73 16 149/83 H 100 10/24/18 05:15 64 17 132/83 100 10/24/18 05:01 73 16 100 10/24/18 05:00 60 12 181/73 H 100 10/24/18 04:45 71 14 159/92 H 100 10/24/18 04:30 74 14 147/85 H 99 10/24/18 04:15 68 16 132/88 100 10/24/18 04:01 36.8 C 76 16 99 10/24/18 04:00 70 18 110/70 99 10/24/18 03:45 69 16 118/73 99 Laboratory Results 10/24/18 10/24/18 10/24/18 Range/Units 11:55 10:57 08:13 WBC (4.8-10.8) K/uL RBC (4.7-6.1) M/uL Hgb 7.7 L (14.0-18.0) g/dL Hct 21.6 L (42-52) % MCV (80-100) fL MCH (25-34) pg MCHC (32-36) g/dL RDW Std Deviation (36.4-46.3) fL RDW Coeff of [place] (11.5-14.5) % Plt Count (130-400) K/uL MPV (7.4-10.4) fL Immature Gran % (Auto) % Neut % (Auto) % Lymph % (Auto) % [place] % (Auto) % Eos % (Auto) % Baso % (Auto) % Immature Gran # (Auto) (0.00-0.02) K/uL Neut # (Auto) (1.4-6.5) K/uL Lymph # (Auto) (1.2-3.4) K/uL [place] # (Auto) (0.11-0.59) K/uL Eos # (Auto) (0-0.5) K/uL Baso # (Auto) (0-0.2) K/uL Absolute Nucleated RBC (0-0) K/uL Nucleated RBC % (auto) % Platelet Estimate (Normal) Polychromasia PT (9.0-12.0) Seconds INR (0.9-1.1) Fibrinogen (184-400) mg/dl Sodium (136-145) mmol/L Potassium (3.5-5.1) mmol/L Chloride (98-107) mmol/L Carbon Dioxide (21-32) mmol/L Anion Gap (3-11) BUN (7-18) mg/dl Creatinine (0.6-1.4) mg/dl Est Cr Clr Drug Dosing ml/min Est GFR ( Amer) Est GFR (Non-Af Amer) BUN/Creatinine Ratio (10-20) Glucose (70-99) mg/dl POC Glucose 130 H 127 H (70-99) Estimat Average Glucose mg/dl Hemoglobin A1c (4.5-5.6) % Calcium (8.5-10.1) mg/dl Folate (>5.38) ng/ml Nasal Screen MRSA (PCR) (Negative) Blood Type Antibody Screen Crossmatch 10/24/18 10/24/18 10/24/18 Range/Units 05:31 04:04 04:04 WBC (4.8-10.8) K/uL RBC (4.7-6.1) M/uL Hgb 8.0 L (14.0-18.0) g/dL Hct 22.6 L (42-52) % MCV (80-100) fL MCH (25-34) pg MCHC (32-36) g/dL RDW Std Deviation (36.4-46.3) fL RDW Coeff of [place] (11.5-14.5) % Plt Count (130-400) K/uL MPV (7.4-10.4) fL Immature Gran % (Auto) % Neut % (Auto) % Lymph % (Auto) % [place] % (Auto) % Eos % (Auto) % Baso % (Auto) % Immature Gran # (Auto) (0.00-0.02) K/uL Neut # (Auto) (1.4-6.5) K/uL Lymph # (Auto) (1.2-3.4) K/uL [place] # (Auto) (0.11-0.59) K/uL Eos # (Auto) (0-0.5) K/uL Baso # (Auto) (0-0.2) K/uL Absolute Nucleated RBC (0-0) K/uL Nucleated RBC % (auto) % Platelet Estimate (Normal) Polychromasia PT 10.9 (9.0-12.0) Seconds INR 1.1 (0.9-1.1) Fibrinogen 203 (184-400) mg/dl Sodium (136-145) mmol/L Potassium (3.5-5.1) mmol/L Chloride (98-107) mmol/L Carbon Dioxide (21-32) mmol/L Anion Gap (3-11) BUN (7-18) mg/dl Creatinine (0.6-1.4) mg/dl Est Cr Clr Drug Dosing ml/min Est GFR ( Amer) Est GFR (Non-Af Amer) BUN/Creatinine Ratio (10-20) Glucose (70-99) mg/dl POC Glucose (70-99) Estimat Average Glucose mg/dl Hemoglobin A1c (4.5-5.6) % Calcium (8.5-10.1) mg/dl Folate 11.58 (>5.38) ng/ml Nasal Screen MRSA (PCR) (Negative) Blood Type Antibody Screen Crossmatch 10/24/18 10/24/18 10/24/18 Range/Units 04:04 04:04 01:05 WBC 17.40 H (4.8-10.8) K/uL RBC 2.73 L (4.7-6.1) M/uL Hgb 8.1 L (14.0-18.0) g/dL Hct 23.2 L (42-52) % MCV 85.0 (80-100) fL MCH 29.7 (25-34) pg MCHC 34.9 (32-36) g/dL RDW Std Deviation 49.5 H (36.4-46.3) fL RDW Coeff of [place] 16.3 H (11.5-14.5) % Plt Count 200 D (130-400) K/uL MPV 8.3 (7.4-10.4) fL Immature Gran % (Auto) 1.0 % Neut % (Auto) 88.7 % Lymph % (Auto) 5.9 % [place] % (Auto) 4.0 % Eos % (Auto) 0.2 % Baso % (Auto) 0.2 % Immature Gran # (Auto) 0.17 H (0.00-0.02) K/uL Neut # (Auto) 15.43 H (1.4-6.5) K/uL Lymph # (Auto) 1.02 L (1.2-3.4) K/uL [place] # (Auto) 0.70 H (0.11-0.59) K/uL Eos # (Auto) 0.04 (0-0.5) K/uL Baso # (Auto) 0.04 (0-0.2) K/uL Absolute Nucleated RBC 0.03 H (0-0) K/uL Nucleated RBC % (auto) 0.1 % Platelet Estimate Normal (Normal) Polychromasia 1+ PT (9.0-12.0) Seconds INR (0.9-1.1) Fibrinogen (184-400) mg/dl Sodium 140 (136-145) mmol/L Potassium 4.2 (3.5-5.1) mmol/L Chloride 112 H (98-107) mmol/L Carbon Dioxide 22 (21-32) mmol/L Anion Gap 6.0 (3-11) BUN 38 H (7-18) mg/dl Creatinine 0.99 (0.6-1.4) mg/dl Est Cr Clr Drug Dosing 68.1 ml/min Est GFR ( Amer) 96.9 Est GFR (Non-Af Amer) 83.6 BUN/Creatinine Ratio 38.4 H (10-20) Glucose 139 H (70-99) mg/dl POC Glucose (70-99) Estimat Average Glucose 111 mg/dl Hemoglobin A1c 5.5 (4.5-5.6) % Calcium 6.8 L (8.5-10.1) mg/dl Folate (>5.38) ng/ml Nasal Screen MRSA (PCR) (Negative) Blood Type Antibody Screen Crossmatch 10/23/18 10/23/18 10/23/18 Range/Units 23:45 22:56 19:57 WBC (4.8-10.8) K/uL RBC (4.7-6.1) M/uL Hgb (14.0-18.0) g/dL Hct (42-52) % MCV (80-100) fL MCH (25-34) pg MCHC (32-36) g/dL RDW Std Deviation (36.4-46.3) fL RDW Coeff of [place] (11.5-14.5) % Plt Count (130-400) K/uL MPV (7.4-10.4) fL Immature Gran % (Auto) % Neut % (Auto) % Lymph % (Auto) % [place] % (Auto) % Eos % (Auto) % Baso % (Auto) % Immature Gran # (Auto) (0.00-0.02) K/uL Neut # (Auto) (1.4-6.5) K/uL Lymph # (Auto) (1.2-3.4) K/uL [place] # (Auto) (0.11-0.59) K/uL Eos # (Auto) (0-0.5) K/uL Baso # (Auto) (0-0.2) K/uL Absolute Nucleated RBC (0-0) K/uL Nucleated RBC % (auto) % Platelet Estimate (Normal) Polychromasia PT (9.0-12.0) Seconds INR (0.9-1.1) Fibrinogen (184-400) mg/dl Sodium (136-145) mmol/L Potassium (3.5-5.1) mmol/L Chloride (98-107) mmol/L Carbon Dioxide (21-32) mmol/L Anion Gap (3-11) BUN (7-18) mg/dl Creatinine (0.6-1.4) mg/dl Est Cr Clr Drug Dosing ml/min Est GFR ( Amer) Est GFR (Non-Af Amer) BUN/Creatinine Ratio (10-20) Glucose (70-99) mg/dl POC Glucose 188 H 199 H (70-99) Estimat Average Glucose mg/dl Hemoglobin A1c (4.5-5.6) % Calcium (8.5-10.1) mg/dl Folate (>5.38) ng/ml Nasal Screen MRSA (PCR) Negative (Negative) Blood Type Antibody Screen Crossmatch 10/23/18 10/23/18 Range/Units 16:31 09:44 WBC (4.8-10.8) K/uL RBC (4.7-6.1) M/uL Hgb (14.0-18.0) g/dL Hct (42-52) % MCV (80-100) fL MCH (25-34) pg MCHC (32-36) g/dL RDW Std Deviation (36.4-46.3) fL RDW Coeff of [place] (11.5-14.5) % Plt Count (130-400) K/uL MPV (7.4-10.4) fL Immature Gran % (Auto) % Neut % (Auto) % Lymph % (Auto) % [place] % (Auto) % Eos % (Auto) % Baso % (Auto) % Immature Gran # (Auto) (0.00-0.02) K/uL Neut # (Auto) (1.4-6.5) K/uL Lymph # (Auto) (1.2-3.4) K/uL [place] # (Auto) (0.11-0.59) K/uL Eos # (Auto) (0-0.5) K/uL Baso # (Auto) (0-0.2) K/uL Absolute Nucleated RBC (0-0) K/uL Nucleated RBC % (auto) % Platelet Estimate (Normal) Polychromasia PT (9.0-12.0) Seconds INR (0.9-1.1) Fibrinogen (184-400) mg/dl Sodium (136-145) mmol/L Potassium (3.5-5.1) mmol/L Chloride (98-107) mmol/L Carbon Dioxide (21-32) mmol/L Anion Gap (3-11) BUN (7-18) mg/dl Creatinine (0.6-1.4) mg/dl Est Cr Clr Drug Dosing ml/min Est GFR ( Amer) Est GFR (Non-Af Amer) BUN/Creatinine Ratio (10-20) Glucose (70-99) mg/dl POC Glucose 112 H (70-99) Estimat Average Glucose mg/dl Hemoglobin A1c (4.5-5.6) % Calcium (8.5-10.1) mg/dl Folate (>5.38) ng/ml Nasal Screen MRSA (PCR) (Negative) Blood Type A Positive Antibody Screen NEGATIVE Crossmatch See Detail Medications Administered Current Inpatient Medications Dextrose (Dextrose 50%) 25 - 50 ml IV UD PRN; Protocol PRN Reason: Hypoglycemia Protocol Stop: 11/22/18 12:48 Glucagon (Glucagen) 1 mg SQ UD PRN; Protocol PRN Reason: Hypoglycemia Protocol Stop: 11/22/18 12:48 Glucose (Glucose 40%) 15 - 30 gm PO UD PRN; Protocol PRN Reason: Hypoglycemia Protocol Stop: 11/22/18 12:48 Glucose (Dex4 Glucose) 4 - 8 tabs PO UD PRN; Protocol PRN Reason: Hypoglycemia Protocol Stop: 11/22/18 12:48 Pantoprazole Sodium 40 mg/ (Dextrose) 100 mls @ 20 mls/hr IV Q5H JOSIAS Stop: 11/22/18 21:59 Last Admin: 10/24/18 11:04 Dose: 20 mls/hr Documented by: Ceftriaxone Sodium 2,000 mg/ (Dextrose) 70 mls @ 140 mls/hr IV DAILY@1600 JOSIAS; Protocol Stop: 10/29/18 16:29 Insulin Aspart (Novolog Flexpen) 0 units SC ACHS JOSIAS Stop: 11/22/18 12:59 Last Admin: 10/24/18 11:56 Dose: Not Given Documented by: Miscellaneous (Carbohydrates For Hypoglycemia) 15 - 30 gm PO UD PRN PRN Reason: Hypoglycemia Treatment Stop: 11/22/18 12:48 Ondansetron HCl (Zofran) 4 mg IV Q6H PRN PRN Reason: Nausea Stop: 11/22/18 12:48 PG Care Time/CCT Total # of Minutes Spent Total Time Spent with Patient: Total time spent is greater than 50% in coordination of care (as documented) at patient's floor/unit and/or counseling patient: Resident Activity Tracking Resident Involvement: Resident Care Provided Care Provided: Adult Hospital Medicine (1) Anemia Anemia type: unspecified type Qualified Code(s): D64.9 - Anemia, unspecified (2) Leukocytosis Leukocytosis type: unspecified Qualified Code(s): D72.829 - Elevated white blood cell count, unspecified (3) Hypertension Hypertension type: essential hypertension Qualified Code(s): I10 - Essential (primary) hypertension
[2018-10-24] MEDS ORDERED: cefTRIAXone SODIUM 2,000 MG in DEXTROSE 5% 50 ML IV SCH (16:00)
[2018-10-24 20:28] LABS: Hematocrit (blood only) 19.3 % (42-52); Hemoglobin 6.8 g/dL (14.0-18.0)
[2018-10-24] MEDS ORDERED: SODIUM CHLORIDE 0.9% 250 ML IV PRN ×3 (20:31→21:41)
--- NOTE | 2018-10-24 21:19 | Ultrasound Report ---
US duplex mesenteric CLINICAL HISTORY: 58 years-old Male presenting with stenosis seen on CT a/p. TECHNIQUE: Real-time grayscale and color and spectral Doppler ultrasound imaging of the aorta and mes enteric vessels was performed. COMPARISON: CT from 10/23/2018. FINDINGS: Aorta: Patent. Normal waveform. Peak systolic velocity 109 cm/s. Celiac axis: Patent. Normal waveforms. Peak systolic velocity 188 cm/s. Hepatic artery: Patent. Normal waveforms. Peak systolic velocity 184 cm/s. Splenic artery: Patent. Normal waveforms. Peak systolic velocity 233 cm/s. Superior mesenteric artery: Patent. Normal waveforms. Peak systolic velocity 157 cm/s proximally, 160 cm/s in the midportion, and 140 cm/s distally. Inferior mesenteric artery: Obscured bowel gas. Reference ranges: Celiac artery: PSV ? 240 cm/s suggests stenosis ? 50%; PSV ? 320 cm/s suggests stenosis ? 70%. Superior mesenteric artery: PSV ? 295 cm/s suggests stenosis ? 50%; PSV ? 400 cm/s suggests stenosis ? 70%. IMPRESSION: 1. No evidence of abdominal aortic aneurysm or hemodynamically significant atherosclerotic plaque. Electronically signed by: Memo Nina M.D. 10/24/2018 9:17 PM
--- NOTE | 2018-10-24 21:57 | Discharge Summary ---
Date of Service October 24, 2018 Admission HPI Per Admitting Provider Mr. Jerome Salcedo is a pleasant 58yo C male with history of Prostate CA on active surveillance, HTN Anxiety presenting with suspected UGIB. Patient reports black, tarry stools for the last 3-4 days. This AM patient developed nausea with 2 episodes of coffee ground emesis. Patient had a syncopal episode while waiting in the ER and had an episode of hematemesis. Stools found to be strongly heme + by ER as well as normochromic/normocytic anemia, Hg=6.2 down from prior value of 14.4 in August. Additionally he has been complaining of approximately 1 month of intermittent dizziness as well as generalized weakness and fatigue. He reports lightheadedness and near syncope with positional changes and CASTELLANO. These symptoms have been acutely worse over the last 2-3 days. He also had an episode of mild chest discomfort after vomiting which quickly resolved. Patient drinks EtOH, appx 2-3 beers daily. He uses Ibuprofen and Excedrin a few times per week. He has no known history of liver disease. No prior history of GIB and is not on anticoagulation. He also reports intermittent fevers, chills and body aches since his prostate biopsy in late August as well as increased urinary frequency. ER Course: Pepcid 20mg IV. Protonix 40mg PO. NSS 1L. Zosyn 4.5gm Principal Diagnosis gastrointestinal bleed Discharge Exam GENERAL: Awake, alert to person, place, and .no distress. HENT: Normocephalic, atraumatic. Mucus membranes appear moist. EYES: Normal conjunctiva. Sclera non-icteric. EOMI. NECK: Supple. Full range of motion. RESPIRATORY: Normal work of breathing, on room air. CARDIAC: Regular rate, normal rhythm. ABDOMEN: Soft, non-distended. No tenderness to palpation in all four quadrants. Bowel sounds are normal. NEURO: No gross focal motor deficits noted. CN II-XII grossly in tact. SKIN: Rash not present. No jaundice noted. PSYCH: Appropriate mood and affect. Cooperative. Exam as done by Laurel Avila MD, Transformer Builder. Discharge Data Allergies Allergy/AdvReac Type Severity Reaction Status Date / Time No Known Allergies Verified 10/23/18 09:49 Consultations 10/23/18 10:13 ED Decision to Admit Stat 10/23/18 12:49 Consult Gastroenterology Routine 10/24/18 02:54 Consult Airport Driver Routine 10/24/18 03:37 Consult Case Management - Discharge Planning Routine 10/24/18 21:43 Burn CD for patient Stat Procedures Performed Operation Date: 10/23/18 20:30 Actual Procedures p Esophagogastroduodenoscopy(Not Applicable) - Melissa Springer Findings: LA Grade B (one or more mucosal breaks greater than 5 mm, not extending between the tops of two mucosal folds) esophagitis with no bleeding was found in the lower third of the esophagus. There is no endoscopic evidence of varices in the entire esophagus. Red blood was found in the entire examined stomach. This was irrigated with a large amount of lavage from the stomach, no ulcerations were seen. One small, non-obstructing superficial duodenal ulcer was found in the region of the posterior duodenal bulb. The lesion was 5-7 mm in largest dimension and notable for a large visible vessel with evidence of recent bleeding. Area was successfully injected with 3 mL of a 1:10,000 solution of epinephrine for drug delivery. Coagulation for hemostasis using bipolar probe was unsuccessful. For hemostasis, four hemostatic clips were successfully placed (MR conditional, [place]). There was no bleeding at the end of the procedure. The second portion of the duodenum and third portion of the duodenum were normal. Impression: - LA Grade B reflux esophagitis. - Red blood in the entire stomach. - One non-obstructing duodenal ulcer. Injected. Treatment not successful. Treated with bipolar cautery. Clips (MR conditional) were placed. - Normal second portion of the duodenum and third portion of the duodenum. - No specimens collected. Recommendation: - Refer to tertiary center at the next available appointment. - Give Protonix (pantoprazole): initiate therapy with 80 mg IV bolus, then 8 mg/hr IV by continuous infusion for 3 days. - No aspirin, ibuprofen, naproxen, or other non-steroidal anti-inflammatory drugs. Melissa Springer D.O. Melissa Springer, 10/23/2018 9:44:33 PM Operation Date: 10/24/18 08:30 <No data on this case meets the specified criteria> Ordered Studies 10/23/18 10:09 CT abd pelvis IV con only Stat CT head/brain wo con Stat 10/24/18 15:31 US duplex mesenteric Routine Hospital Course (1) Duodenal ulcer hemorrhage: 58-year-old male was admitted on 23 October 2018 for dizziness, fatigue, and upper GI bleed. Duodenal ulcer hemorrhage, anemia: Noted coffee-ground emesis and melena, likely related to alcohol and NSAID use. No history of same. Placed on Protonix drip and octreotide. Admit Hb 6.2. Transfused [address] a/p IV con only noted extensive diverticulosis (see full report). See related GI notes. Underwent emergent EGD on 15Jul which noted reflux esophagitis and a duodenal ulcer which was treated with cautery and clips. Recommended Protonix drip for 72 hours and referral to tertiary center for IR. H/H downtrending this evening from 7.7/21.6 to 6.8/19.3. 2 additional units PRBCs and 2units FFP ordered and running. Cargo Inspector contacted [facility] who will accept this patient for further care. Other issues: Leukocytosis: Admit WBC 19. Recent reports of fever and chills, thought to be reactive. pCXR clear. 15Jul UCx positive for Gram neg bacilli with sensitivities pending. Question of pyelo on CT a/p. 15Jul empirically started on Zosyn. Hyperglycemia: History of same. 16Jul HbA1c is 5.5. On insulin sliding scale as inpatient. Incidental CT a/p findings: - Patchy enhancement of the right kidney concerning for pyelonephritis or less likely small infarcts. 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 Mesenteric u/s shows no evidence of AAA or hemodynamically significant atherosclerotic plaque. Ongoing medical issues: - Hypertension: Holding home irbesartan in setting of acute bleed. - Anxiety: Not on any medicines at home for this. - Prostate cancer: Urologist is Dr. Andrade. S/p biopsy in late August 2018. No evidence of metastatic disease by bone scan in September. Plans for radical prostatectomy in the fall. Held home tamsulosin. - Alcohol use: Drinks about 2-3 beers daily, last on Tuesday 13Jul. - LOKESH: Reported not compliant with CPAP. Will use here and encouraged for home. Code status: Full code. Diet: NPO while here. DVT prophy: SCDs. Chemical prophylaxis held due to acute GI bleed. PT/OT: Deferred. Disbo: Given that we have optimized this patient to the best of our ability and lack of IR here at [facility], to tertiary center for further management. (2) Anemia: (3) Leukocytosis: (4) Hyperglycemia: (5) Hypertension: (6) Anxiety: (7) Prostate cancer: (8) Alcohol use: (9) LOKESH on CPAP: Total Time Total Time Spent Total Time Spent (In Minutes): 30 Discharge Plan Discharge Items Patient Disposition: Transfer Acute Care Hospital Reason For Visit: UGIB Discharge Diagnosis: GI bleed Condition: Serious Discharge Goals: Improve disease control and Therapeutic intervention Activity: Per 'Additional Instructions' section Non-emergency contact: Primary Care Provider Call non-emergency contact if: you have any medication questions Follow-up/Referrals: Jasper Muñiz MD [Primary Care Provider] - Diet: Clear liquid Addtl Provider Instructions: You were admitted due to bleeding from your gastrointestinal system. This was found to be bleeding from an ulcer located close to a large vessel, the gastroduodenal artery. The artery was clipped and cauterized, and you have received blood as well as FFP. You are being transferred to [facility] for further monitoring and possible intervention with interventional radiology. Letha Avila MD Prescriptions: Continued irbesartan 300 mg Tablet 300 mg PO QAM RF: 0 tamsulosin 0.4 mg capsule 0.4 mg PO DAILY RF: 0 Stand-Alone Forms: [facility] Discharge Orders: Discharge Order (Routine); Ordered 10/24/18 Ordered By: Laurel Avila Admission Data Admit Date/Time: 10/23/18 11:00 Attending Provider: Zuri Jones Admit Provider: Ana Boland Primary Care Provider: Jasper Muñiz Other Providers: Ana Boland ; Cheo Barahona ; Isis Mccabe ; Bettie Young ; Maikel Weaver Service: Telemetry Resident Activity Tracking Resident Involvement: Resident Care Provided Care Provided: Adult Hospital Medicine
== END 2018-10-25 00:45 | disposition short-term general hospital (02) | DRG 811 ==
LOC: ED 09:14 → 2S 11:00 → SUATTDRO 11:00 → 2S 12:24 → 1E 21:14 → 2S 10-24 12:55
DX: Z87.891 Personal history of nicotine dependence; Z72.89 Other problems related to lifestyle; N12 Tubulo-interstitial nephritis, not specified as acute or chronic; G47.33 Obstructive sleep apnea (adult) (pediatric); D62 Acute posthemorrhagic anemia; K26.4 Chronic or unspecified duodenal ulcer with hemorrhage; C61 Malignant neoplasm of prostate; B96.89 Other specified bacterial agents as the cause of diseases classified elsewhere; K21.0 Gastro-esophageal reflux disease with esophagitis; Z79.899 Other long term (current) drug therapy; R73.9 Hyperglycemia, unspecified; I10 Essential (primary) hypertension; Z91.19 Patient's noncompliance with other medical treatment and regimen; K55.1 Chronic vascular disorders of intestine; Z80.51 Family history of malignant neoplasm of kidney

== ENCOUNTER 2019-02-08 07:51 | Inpatient (IN) ==
--- NOTE | 2019-01-18 16:24 | PAT Medication Instructions ---
Medication Instructions Date of Service January 18, 2019 Home Medications tamsulosin 0.4 mg PO QAM pantoprazole 40 mg PO QAM irbesartan 300 mg PO QAM DO NOT take the morning of surgery irbesartan 300 mg PO QAM Take morning of surgery With a small sip of water, OTHERWISE NOTHING TO EAT OR DRINK AFTER MIDNIGHT: tamsulosin 0.4 mg PO QAM pantoprazole 40 mg PO QAM Other Notes If you have any questions please call us at [phone] or [phone] or [phone] or [phone]
--- NOTE | 2019-01-19 08:21 | Anesthesiology Consultation ---
Date of Service January 19, 2019 Assessment & Plan (1) Encounter for pre-operative examination: Chart Review Chart Review: Pending: Refer to Additional Notes / Consult section (pending preop testing (labs)) and Patient seen in Pre Admission Testing Teaching & Discussion Pre-Anesthesia Teaching/Discussion Notes: Instructed NPO after midnight before surgery,except medications with 15 cc of water. Medication instructions provided according to the PAT guidelines. History Surgery Operation Date: 02/08/19 07:30 Proposed Procedures p Robotic Assisted Laparoscopic Radical Retropubic Prostatectomy, Possible Open, Possible Pelvic Lymph Node Dissection, Possible Suprapubic Tube Placement - Moreno Andrade MD Height/Weight Height: 5 ft 3 in Weight: 61.2 kg Allergies Allergy/AdvReac Type Severity Reaction Status Date / Time No Known Allergies Verified 01/12/19 11:54 Medications Home Medications Medication Instructions Recorded Confirmed Last Taken tamsulosin 0.4 mg PO QAM 10/23/18 01/12/19 12/27/18 22:00 pantoprazole 40 mg PO QAM 12/22/18 01/12/19 01/03/19 08:00 irbesartan 300 mg PO QAM 01/12/19 01/12/19 Unknown Past Medical History Medical History Anxiety History of upper gastrointestinal bleeding s/p blood transfusion (08/2018) Hypertension Prostate cancer Sleep apnea no device Exercise / Class Metabolic Activity II 4-5 Yardwork/Stairs/Walk up hill Past Family History Family History Father No problems noted. Mother , age 75 severe arthritis Arthritis Brother , age 56 renal cancer Renal cell carcinoma Sister Brain cancer Other No family history of adverse response to anesthesia Past Surgical History Surgical History History of esophagogastroduodenoscopy (EGD) EGD: 01/04/19: MAC sedation at [facility] (no anesthesia complications per progress note) History of prostate biopsy Prostate biopsy: 08/31/18: MAC sedation (no anesthesia complications per progress note; no fever noted) History of tooth extraction under local Past Anesthesia History No Family Hx of Anesthesia Complications and Other *"Slight" post-op headache* History of PONV No Hx of PONV and No Hx of Motion Sickness Social History Smoking Status: Never smoker Do You Dip or Chew Tobacco: No Hx Alcohol Use: Yes Alcohol type: beer alcohol intake frequency: 3 or more drinks per day (3 beers/day in the evening) Hx Substance Use: No substance use type: does not use Review of Systems Patient denies chest pain, shortness of breath, dyspnea on exertion, reflux, cough, wheezing, palpitations. Physical Exam Vital Signs VITALS BP 160/100 (160/92 with manual recheck on right)- patient states he did not take BP meds this morning/voiced understanding regarding medication compliance prior to surgery. P 63 TEMP 98.8 SP02 99%RA RESP 18 PHYSICAL Full neck and c-spine range of motion. Full TMJ range of motion. TMD 3 finger breaths Mallampati Score 1 Dentition: intact Lungs: clear throughout to auscultation Cardiac: regular rate and rhythm, no murmurs noted Spine: normal Carotid arteries: negative bruit Extremities: no edema Testing Electrocardiogram Date: 10/23/18 Findings: + NSR @ (83) Chest X-Ray Date: 10/23/18 Findings: + NAD
[2019-01-19 09:58] LABS: Basophils # (auto) 0.02 K/uL (0-0.2); Basophils % (auto) 0.4 %; Eosinophils % (auto) 1.8 %; Hematocrit (blood only) 36.3 % (42-52); Immature Granulocytes # (auto) 0.03 K/uL (0.00-0.02); Immature Granulocytes % (auto) 0.5 %; Lymphocytes % (auto) 18.2 %; Mean Corpuscular Hemoglobin 27.9 pg (25-34); Mean Corpuscular Hgb Conc 33.1 g/dL (32-36); Mean Corpuscular Volume 84.4 fL (80-100); Mean Platelet Volume 8.8 fL (7.4-10.4); Monocytes # (auto) 0.53 K/uL (0.11-0.59); Monocytes % (auto) 9.6 %; Neutrophils # (auto) 3.82 K/uL (1.4-6.5); Neutrophils % (auto) 69.5 %; Platelet Count 432 K/uL (130-400); RDW Coefficient of Variation 15.6 % (11.5-14.5); RDW Standard Deviation 48.4 fL (36.4-46.3)
[2019-01-19 10:00] LABS: Appearance Urine Clear (Clear); Bilirubin Urine Negative (Negative); Blood Urine Negative (Negative); Color Urine Yellow; Glucose Urine UA Negative (Negative); Ketones Urine Negative (Negative); Leukocyte Esterase Urine 1+ (Negative); Nitrite Urine Negative (Negative); Protein Urine Negative (Negative); Urobilinogen Urine Negative (Negative)
[2019-01-19 10:02] LABS: BUN Creatinine Ratio 16.3 (10-20); Calcium 8.9 mg/dl (8.5-10.1); Creatinine Clr Calc Pharmacy 65.5 ml/min; Est GFR (African American) 96.9; Est GFR (Non-African American) 83.6; Potassium 5.1 mmol/L (3.5-5.1)
[2019-01-19 10:17] LABS: Bacteria Urine Negative (Negative); Epithelial Cell Urine 0-5 /lpf (0-5); RBC Urine 0-4 /hpf (0-4)
[~2019-02-08 07:51] MED LIST: CEFAZOLIN 1000MG 1,000 MG/7.5 ML SYR IV SCH; HEPARIN SOD 5,000 UNIT/0.5 ML VIAL SQ SCH; LR 15ML/HR IV SCH
[2019-02-08] MEDS ORDERED: PROPOFOL IV EMULSION 10 MG/ML 20 ML VIAL IV ONE (08:19)
[2019-02-08] MEDS ORDERED: NEOSTIGMINE METHYLSULFATE 5 MG/5 ML SYR ONE (08:19)
[2019-02-08] MEDS ORDERED: ePHEDrine sulfate 50 MG/ML SYR ONE (08:19)
[2019-02-08] MEDS ORDERED: LIDOCAINE HCL 2% 2 ML VIAL/AMP(20MG/ML) INFIL ONE (08:19)
[2019-02-08] MEDS ORDERED: ONDANSETRON INJ 2 MG/ML 2 ML VIAL ONE (08:19)
[2019-02-08] MEDS ORDERED: PHENYLEPHRINE 100MCG/ML 5ML SYR ONE (08:19)
[2019-02-08] MEDS ORDERED: LARYING-O-JET KIT (LTA) ONE (08:19)
[2019-02-08] MEDS ORDERED: fentaNYL citrate 100 MCG/2 ML VIAL ONE ×2 (08:19)
[2019-02-08] MEDS ORDERED: DEXAMETHASONE SOD INJ 4 MG/ML VIAL ONE (08:19)
[2019-02-08] MEDS ORDERED: ROCURONIUM BROMIDE 10 MG/ML 5 ML VIAL ONE ×3 (08:19→13:00)
[2019-02-08] MEDS ORDERED: GLYCOPYRROLATE 0.2 MG/ML VIAL ONE (08:19)
[2019-02-08] MEDS ORDERED: MIDAZOLAM HCL 1 MG/ML 2ML VIAL ONE (08:19)
[2019-02-08] MEDS ORDERED: fentaNYL citrate 100 MCG/2 ML VIAL IV PRN (08:53)
[2019-02-08] MEDS ORDERED: ePHEDrine sulfate 50 MG/ML AMP IV PRN (08:53)
[2019-02-08] MEDS ORDERED: ONDANSETRON INJ 2 MG/ML 2 ML VIAL IV PRN ×2 (08:53→15:21)
[2019-02-08] MEDS ORDERED: HYDROmorphone INJ 1 MG/ML SYRINGE IV PRN (08:53)
[2019-02-08] MEDS ORDERED: ATROPINE SULFATE 0.1 MG/ML 10ML SYR IV PRN (08:53)
[2019-02-08] MEDS ORDERED: BUPIVACAINE 0.5 % 5 MG/1 ML MPF 30ML VIAL ONE (09:59)
--- NOTE | 2019-02-08 10:05 | History & Physical Bridge Note ---
Date of Service February 08, 2019 History & Physical Bridge Note I have examined the patient, reviewed the History & Physical and in the interval since the performance of the History & Physical I have noted the following changes of clinical significance: no changes noted
[2019-02-08] MEDS ORDERED: ACETAMINOPHEN 1000 MG/100 ML IV IV ONE (11:07)
[2019-02-08] MEDS ORDERED: HYDROmorphone INJ 2 MG/ML SYR/VIAL ONE (11:34)
--- NOTE | 2019-02-08 13:53 | Operative Report ---
PG Post Operative Report Pre & Post Diagnosis Operation Date: 02/08/19 09:50 Pre-Op Diagnosis: [place] 3+4 prostate Cancer Post-Op Diagnosis: [place] 3+4 prostate Cancer Anesthesia: General anesthesia with endotracheal intubation plus local at port sites. IV fluids: 1300 cc. EBL: 50 cc. Drains left in place: 16 [place] silicone SP tube with 10 cc in balloon, 18 [place] urethral catheter with 10 cc in balloon, #10 RAMONITA drain in the left lower quadrant. Complications: None. Findings: Watertight anastomosis with excellent anatomy. Wireless Engineer: CARMELA Navarro. Wireless Engineer present for retraction, instrument passage, suction, patient positioning, suture passage, and general patient safety. I identified the patient and participated in the time-out.: Yes Procedure Operation Date: 02/08/19 09:50 Actual Procedures p Robotic-Assisted Laparoscopic Radical Retropubic Prostatectomy, Bilateral Obturator Lymph Node Dissection; Suprapubic Tube Placement(Not Applicable) - Moreno Andrade MD Brief history: Patient is a pleasant 58-year-old male diagnosed with prostate cancer earlier this summer who was chosen a robotic prostatectomy to manage his disease. He has delayed therapy intentionally until the current time. Please see H&P for further details. Intravenous Ancef is provided for antibiotic coverage and SCDs used for DVT prophylaxis. Intravenous Tylenol provided for analgesia perioperatively and subcutaneous heparin provided as well. Consent reviewed with the patient and family preoperatively today. Procedure: Patient was properly identified and brought into the operative suite after identification of appropriate consent inthe chart. General anesthesia with endotracheal intubation was initiated and patient was prepped and draped in the standard fashion for this procedure. Full timeout procedure was followed. All port sites were anesthetized with local prior to incision. A transverse supraumbilical incision was made and abdomen was directly entered using a visual obturator and a 0 degree laparoscope. No evidence of any injury to the intra- abdominal structures was appreciated at the time of entry or any port placement. Full laparoscopy was performed demonstrating normal intra-abdominal anatomy with minimal scarring. Ports were placed for robotic fourth arm template including 2 left-sided 7 mm ports, one right-sided 7 mm robotic port and a twelve 5 mm assistant unit forester port on the right-hand side. Patient was placed in Trendelenburg and robot was brought in and docked. 0 degree lens was used to drop the bladder down to the level of the pubic bone after releasing colonic attachments of the left lower quadrant. Prostate was defatted and this was sent for pathologic analysis. Endopelvic fascia was skeletonized and then sharply incised. Dissection was carried out to the level of the apex of the prostate on both sides. Dorsal vein was skeletonized and then controlled using a [id number] 0 Vicryl suture on a CT1 needle. After this was complete the bladder neck was placed on traction using the pro-grasp and a 30 degree down lens was used to skeletonize this to the level of the Knox catheter. A continent bladder neck was appreciated intraoperatively. Catheter was used to create anterior traction on the bladder and the posterior bladder neck was divided and then dropped. Vas deferens were identified in the midline and skeletonized and then transected. Right vas deferens was noted to be significantly indurated and a piece of this was removed separately. Seminal vesicles were dissected free and the right seminal vesicle was noted to be significantly atrophic. Left seminal vesicle was noted to be within normal limits. After this was complete the prostatic pedicles were skeletonized and controlled using Weck clips. Nerve sparing dissection was carried out to the level of the apex of the prostate seen that the [place] 4 element was present in the anterior prostate on biopsy. After this was complete the dorsal venous complex was divided and urethra skeletonized. Excellent urethral stump was appreciated. Remaining rectourethralis fibers were divided and the prostate was able to be removed into the abdomen where was placed within an Endo Catch bag for retrieval at the end of the case. Attention was turned to the pelvis where the rectum was insufflated under saline irrigation and noted to be free of any injuries. Irrigant was removed from the pelvis and FloSeal tissue sealant was placed over the prostate bed for additional hemo-stasis. Attention was then turned to the obturator lymph node dissections on both sides which were completed with minimal difficulty seen a lack of intra-abdominal fat. Using the confines of the external iliac vein, pelvic sidewall and obturator nerve the lymph node packets were dissected free with Weck clips and monopolar cautery being used as necessary for the control of lymphatic and small blood vessels. These were handed off to the assistant unit forester over the course of the case. Both lymph node dissections were completed without difficulties and FloSeal tissue sealant was placed within the confines of the obturator fossa after completion. Attention was then turned to the bladder neck and a circumferential running anastomosis between the continent bladder neck and urethral stump was performed. Knox catheter was appreciated entering the bladder without difficulties or resistance throughout the case. After this was complete the bladder was distended and a small suprapubic incision was made. Suprapubic catheter insertion trocar was passed under direct visualization and inserted into the bladder. 16 [place] silicone catheter was placed into the bladder with 10 cc of sterile water in the balloon. Knox catheter was replaced with an 18 [place] silicone catheter with 10 cc of sterile water in the balloon. Catheters were able to be irrigated with isovolemic return from the opposing catheter and were both directly visualized to be in good location within the bladder. Pro- grasp was removed and a #10 RAMONITA drain was brought in via the fourth arm port. This was placed within the confines of the pelvis while avoiding placing it directly over the anastomosis. Robotic instruments were removed and robot was de-docked. Camera was brought in via the assistant unit forester 12 port in the string to the Endo Catch bag was brought in through the supraumbilical port. Ports were removed and abdomen was desufflated. Supraumbilical incision was enlarged sufficiently to allow for easy removal of the specimen bag. This was closed using 0 Vicryl suture in a UR 5 needle. Suprapubic tube and RAMONITA drain was secured using 2-0 silk suture. Subcutaneous fat was closed using a 3-0 Vicryl suture of the supraumbilical incision. Skin incisions were closed using 4-0 Monocryl and Dermabond dressing. Catheter was replaced to gravity drainage and anesthesia was reversed. Patient was transferred to the recovery room in stable condition. Follow-up CARE: Patient will be admitted to the floor for standard postoperative management. Surgeon Moreno Andrade MD Wireless Engineer See above Estimated Blood Loss 50 Findings Consistent with Post-Op Diagnosis Specimens Periprosthetic fat, right and left obturator lymph nodes, prostate plus seminal vesicles Description of Procedure See above I attest to the content of the Intraoperative Record and any orders documented therein. Any exceptions are noted below.
[2019-02-08 14:10] LABS: Basophils # (auto) 0.01 K/uL (0-0.2); Basophils % (auto) 0.1 %; Eosinophils # (auto) 0.03 K/uL (0-0.5); Eosinophils % (auto) 0.4 %; Hematocrit (blood only) 35.9 % (42-52); Hemoglobin 11.6 g/dL (14.0-18.0); Immature Granulocytes # (auto) 0.03 K/uL (0.00-0.02); Immature Granulocytes % (auto) 0.4 %; Lymphocytes # (auto) 0.74 K/uL (1.2-3.4); Lymphocytes % (auto) 10.1 %; Mean Corpuscular Hemoglobin 27.5 pg (25-34); Mean Corpuscular Volume 85.1 fL (80-100); Mean Platelet Volume 8.7 fL (7.4-10.4); Monocytes # (auto) 0.16 K/uL (0.11-0.59); Monocytes % (auto) 2.2 %; Neutrophils # (auto) 6.33 K/uL (1.4-6.5); Neutrophils % (auto) 86.8 %; Platelet Count 244 K/uL (130-400); RDW Coefficient of Variation 16.5 % (11.5-14.5); RDW Standard Deviation 51.2 fL (36.4-46.3); Red Blood Count 4.22 M/uL (4.7-6.1)
[2019-02-08 14:22] LABS: Mean Corpuscular Hgb Conc 32.3 g/dL (32-36)
[2019-02-08 14:26] LABS: BUN Creatinine Ratio 13.9 (10-20); Calcium 8.3 mg/dl (8.5-10.1); Creatinine Clr Calc Pharmacy 61.1 ml/min; Est GFR (African American) 89.2; Potassium 4.3 mmol/L (3.5-5.1)
--- NOTE | 2019-02-08 14:59 | Anesthesiology Progress Note ---
Date of Service February 08, 2019 Anesthesia Post Procedure Vital Signs Vital Signs: Temp Pulse Pulse Resp BP BP Pulse Ox 02/08/19 14:50 48 L 14 133/85 95 02/08/19 14:35 36.5 C 45 L 16 137/81 99 02/08/19 14:25 45 L 12 133/95 99 02/08/19 14:15 46 L 12 141/74 H 100 02/08/19 14:05 58 L 17 126/66 100 02/08/19 13:54 36.5 C 59 L 15 119/75 100 02/08/19 08:40 36.9 C 54 L 20 160/94 H 97 02/08/19 08:37 36.9 C 54 L 20 160/94 H 97 Pain Intensity Lower Abdomen: Pain Intensity: 0 Transfer of Care Handoff Completed per policy Notes Mental Status: alert / awake / arousable and participated in evaluation Patient Amnestic to Procedure: Yes Nausea / Vomiting: adequately controlled Pain: adequately controlled Airway Patency, RR, SpO2: stable & adequate BP & HR: stable & adequate Hydration State: stable & adequate Anesthetic Complications: no major complications apparent and Pt Satisfied with anesthetic care
[2019-02-08] MEDS ORDERED: OXYCODONE HCL IR 5 MG TAB (IMMEDIATE RELEASE) PO PRN ×2 (15:21)
[2019-02-08] MEDS: LACTATED RINGER'S 1,000 ML IV SCH ×2 (15:30→18:46)
[2019-02-08] MEDS: CEFAZOLIN 1000MG 1,000 MG/7.5 ML SYR IV SCH (18:55)
[2019-02-08] MEDS ORDERED: INFLUENZA VIRUS QUAD VACCINE 0.5 ML SYR IM ONE (19:45)
[2019-02-08] MEDS ORDERED: INFLUENZA ADMINISTRATION CHARGE ONE (19:45)
[2019-02-08] MEDS: DOCUSATE SODIUM 100 MG CAP PO SCH (20:49)
[2019-02-08] MEDS: HEPARIN SOD 5,000 UNIT/0.5 ML VIAL SQ SCH (20:51)
[2019-02-08] MEDS: FAMOTIDINE 20 MG in SYRINGE 3 ML IV SCH (21:06)
[2019-02-08] MEDS: MoRPHine SULFATE 10 MG/ML CARP/VIAL IV PRN (21:48)
[2019-02-09] MEDS: ACETAMINOPHEN 1,000 MG/100 ML VIAL IV PRN ×2 (00:35→07:34)
[2019-02-09] MEDS: CEFAZOLIN 1000MG 1,000 MG/7.5 ML SYR IV SCH ×2 (02:36→10:08)
[2019-02-09] MEDS: LACTATED RINGER'S 1,000 ML IV SCH (02:38)
[2019-02-09 05:33] LABS: Basophils # (auto) 0.01 K/uL (0-0.2); Basophils % (auto) 0.1 %; Eosinophils # (auto) 0.03 K/uL (0-0.5); Eosinophils % (auto) 0.4 %; Hematocrit (blood only) 32.1 % (42-52); Hemoglobin 10.7 g/dL (14.0-18.0); Immature Granulocytes # (auto) 0.01 K/uL (0.00-0.02); Immature Granulocytes % (auto) 0.1 %; Lymphocytes # (auto) 1.07 K/uL (1.2-3.4); Lymphocytes % (auto) 12.9 %; Mean Corpuscular Hemoglobin 27.9 pg (25-34); Mean Corpuscular Hgb Conc 33.3 g/dL (32-36); Mean Corpuscular Volume 83.8 fL (80-100); Monocytes # (auto) 0.71 K/uL (0.11-0.59); Monocytes % (auto) 8.6 %; Neutrophils # (auto) 6.47 K/uL (1.4-6.5); Neutrophils % (auto) 77.9 %; Platelet Count 260 K/uL (130-400); RDW Coefficient of Variation 16.4 % (11.5-14.5); RDW Standard Deviation 50.4 fL (36.4-46.3); Red Blood Count 3.83 M/uL (4.7-6.1)
[2019-02-09 06:04] LABS: BUN Creatinine Ratio 11.4 (10-20); Calcium 8.1 mg/dl (8.5-10.1); Creatinine Clr Calc Pharmacy 62.9 ml/min; Est GFR (African American) 92.4; Est GFR (Non-African American) 79.7; Potassium 4.5 mmol/L (3.5-5.1)
--- NOTE | 2019-02-09 08:04 | Anesthesiology Progress Note ---
Date of Service February 09, 2019 Anesthesia Post Procedure Vital Signs Vital Signs: Temp Pulse Pulse Pulse Resp BP BP 02/09/19 03:03 37.1 C 56 L 16 154/86 H 02/08/19 23:40 37.3 C 57 L 16 138/82 02/08/19 18:28 36.6 C 55 L 17 150/91 H 02/08/19 17:26 36.5 C 60 17 124/77 02/08/19 16:20 36.4 C L 55 L 17 132/85 02/08/19 15:20 36.6 C 50 L 18 131/84 02/08/19 14:50 48 L 14 133/85 02/08/19 14:35 36.5 C 45 L 16 137/81 02/08/19 14:25 45 L 12 133/95 02/08/19 14:15 46 L 12 141/74 H 02/08/19 14:05 58 L 17 126/66 02/08/19 13:54 36.5 C 59 L 15 119/75 02/08/19 08:40 36.9 C 54 L 20 160/94 H 02/08/19 08:37 36.9 C 54 L 20 160/94 H Pulse Ox 02/09/19 03:03 95 02/08/19 23:40 97 02/08/19 18:28 98 02/08/19 17:26 97 02/08/19 16:20 97 02/08/19 15:20 95 02/08/19 14:50 95 02/08/19 14:35 99 02/08/19 14:25 99 02/08/19 14:15 100 02/08/19 14:05 100 02/08/19 13:54 100 02/08/19 08:40 97 02/08/19 08:37 97 Pain Intensity Lower Abdomen: Pain Intensity: 0 Abdomen: Pain Intensity: 0 Notes Mental Status: alert / awake / arousable and participated in evaluation Patient Amnestic to Procedure: Yes Nausea / Vomiting: adequately controlled Pain: adequately controlled Airway Patency, RR, SpO2: stable & adequate BP & HR: stable & adequate Hydration State: stable & adequate Anesthetic Complications: no major complications apparent and Pt Satisfied with anesthetic care
[2019-02-09] MEDS ORDERED: BISACODYL 10 MG SUPP PR PRN (08:17)
[2019-02-09] MEDS: MoRPHine SULFATE 10 MG/ML CARP/VIAL IV PRN (08:19)
--- NOTE | 2019-02-09 08:19 | Urology Progress Note ---
Date of Service February 09, 2019 Assessment & Plan (1) Prostate cancer: 58 yo male POD#1 s/p RALRP, BPLND, SPT. Preop UC&S with E. Coli noted - will continue previous Macrobid in-house and postop. Regular soft mechanical diet today, ambulate in halls. I suspect some bladder spasms as source of lower abdominal discomfort + SPT site leakage - will remove urethral mix and monitor. Continue RAMONITA until later - borderline output last shift. Dulcolax supp PRN constipation / need for BM. Will monitor symptomatically. If patient continues to require parenteral pain meds might have to stay until tomorrow - if feels improved later today OK to DC home with SPT and RAMONITA removal later today. Patient vocalizes understanding of the treatment plan. Subjective 58 yo male POD#1 s/p RALRP, BPLND, SPT placement. He notes he is currently having lower abdominal discomfort, + leaking around SPT after ambulation to BR to attempt BM. He denies emesis, requesting morphine for control. He denies OOB yesterday, + appetite, adriana clears, no other c/o. Intraop findings reviewed. Physical Exam Constitutional: well developed, well nourished and + acute distress (mild lower abdominal discomfort) Eyes: eyes not dysmorphic ENMT: Ears: no external ear abnormality Neck: trachea midline; no anterior neck swelling Respiratory: no respiratory distress and does not use accessory muscles Cardiovascular: Vessels: radial pulses present Gastrointestinal (Abdomen): Inspection/Auscultation: abdomen not distended Percussion/Palpation: + abdomen tender (mild lower abdominal pain) and abdomen soft inc c/d/i, SPT site and RAMONITA site clean. Musculoskeletal: Head/Neck/Chest: normocephalic and neck supple Skin: normal turgor Neurologic: awake; not obtunded Psychiatric: Orientation: oriented x 3 Lymphatic: no lymphadenopathy Results & Data Vital Signs (Past 12 Hours) Vital Signs Temp Pulse Pulse Resp BP Pulse Ox 02/09/19 07:50 36.4 C L 56 L 19 160/110 H 100 02/09/19 03:03 37.1 C 56 L 16 154/86 H 95 02/08/19 23:40 37.3 C 57 L 16 138/82 97 Laboratory Results Laboratory Results - last 48 hr 02/08/19 02/08/19 02/09/19 14:04 14:04 04:53 WBC 7.30 8.30 RBC 4.22 L 3.83 L Hgb 11.6 L 10.7 L Hct 35.9 L 32.1 L MCV 85.1 83.8 MCH 27.5 27.9 MCHC 32.3 33.3 RDW Std Deviation 51.2 H 50.4 H RDW Coeff of [place] 16.5 H 16.4 H Plt Count 244 260 MPV 8.7 9.0 Immature Gran % (Auto) 0.4 0.1 Neut % (Auto) 86.8 77.9 Lymph % (Auto) 10.1 12.9 [place] % (Auto) 2.2 8.6 Eos % (Auto) 0.4 0.4 Baso % (Auto) 0.1 0.1 Immature Gran # (Auto) 0.03 H 0.01 Neut # (Auto) 6.33 6.47 Lymph # (Auto) 0.74 L 1.07 L [place] # (Auto) 0.16 0.71 H Eos # (Auto) 0.03 0.03 Baso # (Auto) 0.01 0.01 Sodium 136 Potassium 4.3 Chloride 106 Carbon Dioxide 26 Anion Gap 4.0 BUN 15 Creatinine 1.06 Est Cr Clr Drug Dosing 61.1 Est GFR ( Amer) 89.2 Est GFR (Non-Af Amer) 77.0 BUN/Creatinine Ratio 13.9 Glucose 143 H Calcium 8.3 L 02/09/19 04:53 WBC RBC Hgb Hct MCV MCH MCHC RDW Std Deviation RDW Coeff of [place] Plt Count MPV Immature Gran % (Auto) Neut % (Auto) Lymph % (Auto) [place] % (Auto) Eos % (Auto) Baso % (Auto) Immature Gran # (Auto) Neut # (Auto) Lymph # (Auto) [place] # (Auto) Eos # (Auto) Baso # (Auto) Sodium 137 Potassium 4.5 Chloride 108 H Carbon Dioxide 26 Anion Gap 4.0 BUN 12 Creatinine 1.03 Est Cr Clr Drug Dosing 62.9 Est GFR ( Amer) 92.4 Est GFR (Non-Af Amer) 79.7 BUN/Creatinine Ratio 11.4 Glucose 113 H Calcium 8.1 L PG Care Time/CCT Total # of Minutes Spent Total Time Spent with Patient: Total time spent is greater than 50% in coordination of care (as documented) at patient's floor/unit and/or counseling patient:
[2019-02-09] MEDS: DOCUSATE SODIUM 100 MG CAP PO SCH (08:22)
[2019-02-09] MEDS: HEPARIN SOD 5,000 UNIT/0.5 ML VIAL SQ SCH (08:23)
[2019-02-09] MEDS: FAMOTIDINE 20 MG in SYRINGE 3 ML IV SCH (08:26)
[2019-02-09] MEDS ORDERED: IRBESARTAN 150 MG TAB PO SCH (09:00)
[2019-02-09] MEDS ORDERED: NITROFURANTOIN MONOHYDRATE 100 MG CAP PO SCH (09:00)
[2019-02-09] MEDS ORDERED: PANTOprazole 40 MG TAB PO SCH (09:00)
--- NOTE | 2019-03-01 13:15 | Discharge Summary ---
Date of Service March 01, 2019 Admission HPI Per Admitting Provider Patient with prostate cancer for robotic prostatectomy to manage his disease. Please see H&P for further details. Admission Exam (Per Admitting) Constitutional well developed, well nourished and + acute distress (mild lower abdominal discomfort) Eyes eyes not dysmorphic ENMT Ears: no external ear abnormality Neck trachea midline; no anterior neck swelling Respiratory no respiratory distress and does not use accessory muscles Cardiovascular Vessels: radial pulses present Gastrointestinal (Abdomen) Inspection/Auscultation: abdomen not distended Percussion/Palpation: + abdomen tender (mild lower abdominal pain) and abdomen soft Musculoskeletal Head/Neck/Chest: normocephalic and neck supple Skin normal turgor Neurologic awake; not obtunded Psychiatric Orientation: oriented x 3 Lymphatic no lymphadenopathy Specialty Data Specialty Data See progress notes for further details. Uncomplicated prostatectomy performed on February 08 as planned. Discharge Data Procedures Performed Operation Date: 02/08/19 09:50 Actual Procedures p Robotic-Assisted Laparoscopic Radical Retropubic Prostatectomy, Bilateral Obturator Lymph Node Dissection; Suprapubic Tube Placement(Not Applicable) - Moreno Andrade MD Hospital Course (1) Prostate cancer: 58 yo male POD#1 s/p RALRP, BPLND, SPT. Preop UC&S with E. Coli noted - will continue previous Macrobid in-house and postop. Regular soft mechanical diet today, ambulate in halls. I suspect some bladder spasms as source of lower abdominal discomfort + SPT site leakage - will remove urethral mix and monitor. Continue RAMONITA until later - borderline output last shift. Dulcolax supp PRN constipation / need for BM. Will monitor symptomatically. If patient continues to require parenteral pain meds might have to stay until tomorrow - if feels improved later today OK to DC home with SPT and RAMONITA removal later today. Patient vocalizes understanding of the treatment plan. Discharge Instructions See discharge instruction sheet and medication list. Outpatient appointments confirmed.
--- NOTE | 2019-03-02 06:57 | Coding Query ---
CODING QUERY To promote full compliance with coding requirements relating to patient care, provider participation is requested in all cases of memorial marker designer uncertainty. Please assist us with the question(s) below: Coding Question(s): There is documentation of, "Preop UC&S with E. Coli noted - will continue previous Macrobid in-house and postop". Please clarify below, in your clinical opinion. ( ) Active UTI treated during this admission (x ) History of UTI treated during this admission ( ) Abnormal Urine findings with no UTI treated ( ) Other: Please Specify Physician's Response(s): Thank you Carito Parmar Principal Diagnosis: "that condition established after study, to be chiefly responsible for occasioning the admission of the patient to the hospital for care." Co-Existing Principal Diagnosis: "when two or more diagnoses equally meet the criteria for principal diagnosis as determined by the circumstances of admission, diagnostic work up, and/or therapy provided, and the Alphabetic Index, Tabular List, or another coding guideline does not provide sequencing direction, any one of the diagnoses may be sequenced first." "When the physician has documented what appears to be a current diagnosis in the body of the record, but has not included the diagnosis in the final diagnostic statement, the physician should be asked whether the diagnosis should be added." (Source Coding [facility] 2 QTR90. p3-4) WADE
== END 2019-02-09 14:51 | disposition home or self-care (01) | DRG 708 ==
LOC: ASU 07:51 → 3W 13:40
DX: Z87.440 Personal history of urinary (tract) infections; N32.89 Other specified disorders of bladder; T83.031A Leakage of indwelling urethral catheter, initial encounter; I10 Essential (primary) hypertension; R10.30 Lower abdominal pain, unspecified; Y84.6 Urinary catheterization as the cause of abnormal reaction of the patient, or of later complication, without mention of misadventure at the time of the procedure; Z80.51 Family history of malignant neoplasm of kidney; C61 Malignant neoplasm of prostate; Z79.899 Other long term (current) drug therapy; Z80.8 Family history of malignant neoplasm of other organs or systems; G47.30 Sleep apnea, unspecified; Y92.239 Unspecified place in hospital as the place of occurrence of the external cause